=== PATIENT | male | born 1955 | race Caucasian/White ===

== ENCOUNTER → 2016-11-20 | Outpatient (CLI) | payer OTHER ==
[~2016-11-20] MED LIST: ASCA500 PO; ASPI81TA28 PO; ENOX60IN SQ; LISINOPRIL/HCTZ PO; MULT-506 PO; NITR1CAP32 PO; SIMV10TA2 PO; SIMV40TA2 PO; SULF800T23 PO; WARF2.5T8 PO; WARF5TAB90 PO; WARF7.5T PO; ZINC1CAP PO; simvastatin PO
--- NOTE | 2016-11-20 12:21 | DIAGNOSTIC IMAGING REPORT ---
ART DOP LOWER EXT BILAT CLINICAL HISTORY: NON HEALING WOUND COMPARISON STUDY: 12/07/2013 FINDINGS: Posterior tibial or dorsalis pedis arteries were noncompressible. Ankle-brachial indices are therefore not meaningful On the right, there is monophasic flow within the left common femoral artery. There is monophasic flow within the proximal superficial femoral artery. There is occlusion of the right mid superficial femoral artery. There is distal reconstitution. There is monophasic flow within the popliteal, anterior tibial, posterior tibial arteries. No flow is visualized in the right peroneal. On the left there is biphasic flow within the common femoral, superficial femoral, popliteal arteries. There is biphasic flow within the posterior tibial and anterior tibial. No flow is visualized within the peroneal artery. IMPRESSION: 1. Monophasic flow with the right common femoral artery. This could indicate a more proximal iliac stenosis 2. Occlusion of the right mid to distal superficial femoral artery. There is a suspected stent at this location which is occluded. This finding was present in November 2013 3. Suspected occlusion of the right peroneal artery 4. Suspected occlusion of the left peroneal artery Electronically signed by: Sonido Glaser M.D. 11/20/2016 12:20 PM Dictated Date/Time: 11/20/2016 12:16 PM
== END | disposition home or self-care (01) ==
LOC: C.ULTR 09:50
PROVIDERS: ATTEND Emergency Medicine
DX: S91.104A Unspecified open wound of right lesser toe(s) without damage to nail, initial encounter (principal); S91.102A Unspecified open wound of left great toe without damage to nail, initial encounter; X58.XXXA Exposure to other specified factors, initial encounter

== ENCOUNTER → 2016-11-26 | Outpatient (CLI) | payer OTHER ==
--- NOTE | 2016-11-26 09:04 | DIAGNOSTIC IMAGING REPORT ---
ULTRASOUND OF THE ABDOMINAL AORTA CLINICAL HISTORY: 60-year-old male with history of peripheral arterial disease. TECHNIQUE: Real-time grayscale and color and spectral Doppler ultrasound imaging of the abdominal aorta and iliac arteries was performed. COMPARISON: FINDINGS: Proximal aorta: Patent. Transverse dimension 1.8 x 1.8 cm. Peak systolic velocity 57 cm/s. Normal waveforms. Mid aorta: Patent. Transverse dimension 1.4 x 1.4 cm. Peak systolic velocity 45 cm/s. Normal waveforms. Distal aorta: Patent. Transverse dimension 1.3 x 1.6 cm. Peak systolic velocity 47 cm/s. Normal waveforms. Right iliac artery: Patent. Transverse dimension 0.8 x 0.8 cm. Peak systolic velocity 69 cm/s. Normal waveforms. Left iliac artery: Patent. Transverse dimension 0.8 x 0.8 cm. Peak systolic velocity 65 cm/s. Normal waveforms. IMPRESSION: 1. No evidence of abdominal aortic aneurysm or hemodynamically significant atherosclerotic plaque. Electronically signed by: Colton Reza M.D. 11/26/2016 9:03 AM Dictated Date/Time: 11/26/2016 8:58 AM
== END | disposition home or self-care (01) ==
LOC: C.ULTR 08:01
PROVIDERS: ATTEND Physician Assistant
DX: I70.90 Unspecified atherosclerosis (principal)

== ENCOUNTER → 2016-12-02 | Outpatient (CLI) | payer OTHER ==
[2016-12-02 12:54] LABS: BLOOD UREA NITROGEN 16 mg/dl (7-18); CREATININE 0.85 mg/dl (0.60-1.40)
== END | disposition home or self-care (01) ==
LOC: C.LAB 11:00
PROVIDERS: ATTEND Emergency Medicine
DX: S91.001A Unspecified open wound, right ankle, initial encounter (principal); X58.XXXA Exposure to other specified factors, initial encounter

== ENCOUNTER → 2016-12-05 | Outpatient (CLI) | payer OTHER ==
[~2016-12-05] MED LIST changes: +GADAVIST IV PRN
--- NOTE | 2016-12-05 12:25 | DIAGNOSTIC IMAGING REPORT ---
LOWER EXTREMITY JOINT COM CLINICAL HISTORY: 60 years-old Male presenting with R ANKLE NON HEALING WOUND along the lateral aspects, infection for 4 weeks, currently on antibiotics. TECHNIQUE: Multisequence, multiplanar MR imaging of the right ankle was performed before and after the administration of intravenous contrast. IV contrast: 6.6 mL of Gadavist. COMPARISON: None. FINDINGS: Examination limited by absence of true coronal imaging. Localizer images: Unremarkable. Diffuse subcutaneous edema and skin thickening along the dorsum of the ankle. Minimal bony edema noted at the posterior aspect of the distal fibula with associated mild T1 hypointensity. This is immediately deep to an apparent ulceration. No other sites of bony edema. Foci of susceptibility within the distal tibia and talar dome may relate to prior surgical intervention. Peroneal tendons intact. Anterior tendons including the tibialis anterior, extensor hallucis longus and extensor digitorum longus intact. Posterior tendons including the tibialis posterior, flexor digitorum longus, and flexor hallucis longus intact. Deltoid ligament grossly intact. Anterior and posterior talofibular ligaments intact.. Ankle mortise intact. No significant degenerative changes. Normal signal intensity within the sinus tarsi. No apparent thickening of the plantar fascia, although mild edema noted deep to the plantar fascia within superficial flexor musculature. IMPRESSION: 1. Bone marrow signal intensity changes within the distal posterior fibula and immediately deep to site of ulceration. This is concerning for developing osteomyelitis. 2. Extensive subcutaneous edema and skin thickening along the dorsum of the ankle concerning for cellulitis. Electronically signed by: Colton Reza M.D. 12/05/2016 12:24 PM Dictated Date/Time: 12/05/2016 12:14 PM
== END | disposition home or self-care (01) ==
LOC: C.MRI 09:30
PROVIDERS: ATTEND Emergency Medicine
DX: S91.001A Unspecified open wound, right ankle, initial encounter (principal); X58.XXXA Exposure to other specified factors, initial encounter; R60.0 Localized edema

== ENCOUNTER 2016-12-23 12:36 | Inpatient (IN) | payer OTHER ==
--- NOTE | 2016-12-15 16:06 | PAT Medication Instructions ---
Service Date Dec 15, 2016. Current Home Medication List Ascorbic Acid (Vitamin C), 500 MG PO QAM Aspirin (Aspirin Ec), 81 MG PO QAM Multivitamin (Multivitamin), 1 TAB PO QAM Nitrofurantoin Macrocrystals (Macrodantin), 100 MG PO QAM Simvastatin (Zocor), 40 MG PO QPM Sulfa/Trimethoprim (Bactrim Ds 800MG/160MG), 1 TAB PO BID Warfarin Sod (Jantoven), 2.5 MG PO 3XWEEK Warfarin Sodium (Coumadin), 5 MG PO UD Zinc Sulfate (Zinc Sulfate), 220 MG PO QAM [Lisinopril/Hctz], 10-12.5 MG PO QAM Medication Instructions For Your Scheduled Surgery - Check with surgeon/coumadin for instructions: Warfarin Sod (Jantoven), 2.5 MG PO 3XWEEK Warfarin Sodium (Coumadin), 5 MG PO UD Aspirin (Aspirin Ec), 81 MG PO QAM - Hold the following medications the morning of surgery: [Lisinopril/Hctz], 10-12.5 MG PO QAM Zinc Sulfate (Zinc Sulfate), 220 MG PO QAM Multivitamin (Multivitamin), 1 TAB PO QAM Ascorbic Acid (Vitamin C), 500 MG PO QAM - Take the following medications the morning of surgery with a sip of water: Nitrofurantoin Macrocrystals (Macrodantin), 100 MG PO QAM Sulfa/Trimethoprim (Bactrim Ds 800MG/160MG), 1 TAB PO BID - Take the following medications as scheduled the night before surgery: Simvastatin (Zocor), 40 MG PO QPM Sulfa/Trimethoprim (Bactrim Ds 800MG/160MG), 1 TAB PO BID If you have any questions please call us at [phone] or [phone] or [phone]
--- NOTE | 2016-12-15 16:28 | DIAGNOSTIC IMAGING REPORT ---
CHEST PREADMISSION(PA/LAT) CLINICAL HISTORY: PAT preoperative evaluation COMPARISON STUDY: 01/11/2014 FINDINGS: Lungs are clear. No evidence for cardiac enlargement. Stable stabilization procedure of the low thoracolumbar region. IMPRESSION: Chronic change. No acute process. The above report was generated using voice recognition software. It may contain grammatical, syntax or spelling errors. Electronically signed by: Wai Staples M.D. 12/15/2016 4:26 PM Dictated Date/Time: 12/15/2016 4:26 PM
[2016-12-15 16:51] LABS: BASO % 0.3 %; BASO ABS # 0.02 K/uL (0-0.2); COMPLETE YES; EOS % 1.5 %; HEMATOCRIT 45.5 % (42-52); IG% 0.3 %; LYMPH % 21.5 %; LYMPH ABS # 1.47 K/uL (1.2-3.4); MEAN CELL VOLUME 92.9 fL (80-100); MEAN CORPUSCULAR HGB CONC 34.5 g/dl (32-36); MEAN PLATELET VOLUME 9.4 fL (7.4-10.4); MONO % 10.4 %; PLATELET COUNT 269 K/uL (130-400); WHITE BLOOD COUNT 6.83 K/uL (4.8-10.8)
[2016-12-15 16:58] LABS: BUN/CREATININE RATIO 11.2 (10-20); CALCIUM 9.5 mg/dl (8.5-10.1); CREATININE 0.78 mg/dl (0.60-1.40); POTASSIUM 4.8 mmol/L (3.5-5.1)
[2016-12-15 17:07] LABS: INR 3.2 (0.9-1.1); PARTIAL THROMBOPLASTIN RATIO 1.8; PROTHROMBIN TIME (PATIENT) 35.7 SECONDS (9.0-12.0)
[~2016-12-23] VITALS: Ht 182.9 cm; Wt 67.3 kg
--- NOTE | 2016-12-23 06:15 | History and Physical ---
History & Physical Date Dec 23, 2016. Chief Complaint Non healing ulcer right ankle with probable osteo History of Present Illness The patient is a 61 year old male paraplegic gentleman who has a nonhealing ulceration of the lateral aspect of his right ankle area. The patient states that it has been there for a few months and that he has seen at [facility] for wound care on a regular basis since it developed. He states he has learned from prior experiences not to allow things to get too foregone. He has been consistent with his wound care and does have a history of significant peripheral arterial disease. He had previously undergone a right second toe amputation back in 2013 due to a nonhealing ulceration at that time as well. He presents now after undergoing further ultrasound evaluation of his aortoiliac arteries to evaluate for possible inflow disease, which was suggested on a recent leg arterial ultrasound. He denies any complaints at this time as he has no sensation in his lower extremities. The ultrasound performed in our office demonstrates no abdominal aortic aneurysm with multiphasic flow noted throughout his abdominal aortic and bilateral common iliac, external iliac, and common femoral arteries without any evidence of significant stenosis. Previous leg arterial ultrasound performed demonstrated occluded SFA stents throughout most of his right thigh. The ulcer continued to worsen. Due to his physical state we recommended a BKA Allergies Coded Allergies: No Known Allergies (Unverified , 12/15/16) Home Medications Scheduled Ascorbic Acid (Vitamin C), 500 MG PO QAM Aspirin (Aspirin Ec), 81 MG PO QAM Multivitamin (Multivitamin), 1 TAB PO QAM Nitrofurantoin Macrocrystals (Macrodantin), 100 MG PO QAM Simvastatin (Zocor), 40 MG PO QPM Sulfa/Trimethoprim (Bactrim Ds 800MG/160MG), 1 TAB PO BID Warfarin Sod (Jantoven), 2.5 MG PO 3XWEEK Warfarin Sodium (Coumadin), 5 MG PO UD Zinc Sulfate (Zinc Sulfate), 220 MG PO QAM [Lisinopril/Hctz], 10-12.5 MG PO QAM Problem List Medical Problems: (1) Osteomyelitis of right foot Surgical / Medical History Hx Cardiac Surgery: No Hx Abdominal Surgery: No Hx Cancer Surgery: No Hx Thoracic Surgery: No Hx Urinary Tract Surgery: No HX Other Surgery: Yes (SEE TEXT) Past Medical/Surgical History: Hypertension Social History Smoking Status: Former Smoker Hx Tobacco Use In Past Year?: No (SMOKED 1 PPD X MANY YRS-QUIT SMOKING 17 YRS AGO) Hx Alcohol Use - Type & Amnt: Yes (SOCIAL USE ON OCC) Hx Substance Use -Type & Amnt: No Review of Systems Constitutional: No chills, No diaphoresis, No fever, No malaise, No weakness, No weight gain, No weight loss, No sweats, No fatigue, No problem reported ENMT: No dental pain, No loss of hearing, No epistaxis, No ear discharge, No ear pain, No gum swelling, No mouth pain, No mouth swelling, No nasal congestion , No nasal pain, No rhinorrhea, No stridor, No tinnitus, No sore throat, No throat swelling, No problem reported Respiratory: No cough, No cyanosis, No ECHEVARRIA, No hemoptysis, No orthopnea, No PND , No short of breath, No sputum production, No stridor, No wheezing, No dyspnea , No problem reported Cardiovascular: No chest pain, No chest tightness, No chest pressure, No palpitations, No syncope, No diaphoresis, No edema, No intermittent claudication , No orthopnea, No cyanosis, No mumur, No lightheadedness, No paroxysmal nocturnal dyspnea, No problem reported Gastrointestinal: No abdominal pain, No constipation, No diarrhea, No nausea, No vomiting, No anorexia, No appetite changes, No belching, No flatulence, No food intolerance, No hematemesis, No hemorrhoids, No hematochezia, No stool changes, No heartburn, No indigestion, No dysphagia, No rectal bleeding, No problem reported Musculoskeletal: + muscle weakness, No back pain, No gout, No joint pain, No joint swelling, No muscle pain, No muscle stiffness, No neck pain, No problem reported Neurologic: + problem reported (paraplegic) Psychiatric: No anxiety, No alcohol abuse, No auditory hallucinations, No depression, No drug abuse, No homicidal ideation, No mood changes, No suicidal ideation, No visual hallucinations, No problem reported Physical Exam Constitutional: General Apperance: heathly-appearing, well-nourished, well-developed Level of Distress: NAD Ambulation: in wheelchair Psychiatric: Mental Status: active & alert, normal mood, normal affect Orientation: oriented except where noted, to time, to place, to person Memory: recent memory normal, remote memory normal Neck: supple Lungs: Auscultation: breath sounds normal Cardiovascular: Heart Auscultation: RRR Peripheral Pulses: Radial Pulse: normal on the left, normal on the right Femoral Pulse: normal on the left, normal on the right Abdomen: Inspection & Palpation: soft Musculoskeletal: pertinent finding (paraplegic) Extremities: Upper Right: no cyanosis, no edema, no varicosities, no palpable cord, no clubbing, no ulcers, no mottling Upper Left: no cyanosis, no edema, no varicosities, no palpable cord, no clubbing, no ulcers, no mottling Lower Right: pertinent finding (non healing ankle ulcer) Neurologic: Cranial Nerves: grossly intact Assessment and Plan Imp: Non healing right ankle wound Plan: Patient for a right BKA. I have discussed the risks options and benefits of the procedure with the patient. The patient understands the risks options and benefits and agrees to the procedure.
[~2016-12-23 12:36] MED LIST changes: +CEFAZOLIN 1000MG/55 ML D5W IV SCH; -ENOX60IN SQ; -GADAVIST IV PRN; +LACTATED RINGER'S 1000ML 1,000 ML IV SCH; -SIMV10TA2 PO; -WARF7.5T PO; -simvastatin PO
[2016-12-23] MEDS ORDERED: simvastatin PO (12:56)
[2016-12-23 13:13] VITALS: BP 104/64; PULSE 74; TEMP 36.9; Ht 182.9 cm; Wt 67.3 kg
[2016-12-23 13:39] LABS: INR 1.8 (0.9-1.1); PARTIAL THROMBOPLASTIN RATIO 1.4; PROTHROMBIN TIME (PATIENT) 19.4 SECONDS (9.0-12.0)
[2016-12-23] MEDS ORDERED: FENTANYL CITRATE INJ 50 MCG/1 ML 2 ML VIAL ONE (17:09)
[2016-12-23] MEDS ORDERED: ATROPINE SULFATE 0.1 MG/ML 5ML SYR IV PRN (17:45)
[2016-12-23] MEDS ORDERED: HYDROmorphone INJ 1 MG/ML SYR IV PRN (17:45)
[2016-12-23] MEDS ORDERED: PROMETHAZINE HCL INJ 12.5 MG in SODIUM CHLORIDE 0.9% 50ML 50 ML IV PRN (17:45)
[2016-12-23] MEDS ORDERED: ONDANSETRON INJ 2 MG/ML 2 ML VIAL IV PRN (17:45)
[2016-12-23] MEDS ORDERED: FENTANYL CITRATE INJ 50 MCG/1 ML 2 ML VIAL IV PRN (17:45)
[2016-12-23] MEDS ORDERED: EpHEDrine SULFATE INJ 50 MG/ML AMP IV PRN (17:45)
[2016-12-23] MEDS ORDERED: ACETAMINOPHEN 1000 MG/100 ML IV IV ONE (17:45)
[2016-12-23] MEDS ORDERED: ONDANSETRON INJ 2 MG/ML 2 ML VIAL ONE (18:24)
[2016-12-23] MEDS ORDERED: EpHEDrine SULFATE 50MG/5ML SYR ONE (18:24)
[2016-12-23] MEDS ORDERED: DEXAMETHASONE SOD INJ 4 MG/ML VIAL ONE (18:24)
[2016-12-23] MEDS ORDERED: LIDOCAINE HCL 2% 2 ML VIAL (20MG/ML) ONE (18:24)
[2016-12-23] MEDS ORDERED: PROPOFOL IV EMULSION 10 MG/ML 20 ML VIAL IV ONE (18:24)
--- NOTE | 2016-12-23 18:25 | History & Physical Bridge Note ---
H&P Re-Evaluation Bridge Note: I have examined the patient, reviewed the History & Physical and in the interval since the performance of the History & Physical I have noted the following changes of clinical significance: No changes noted
[2016-12-23] MEDS ORDERED: D5W AND 1/2NSS 1,000 ML IV SCH (19:14)
--- NOTE | 2016-12-23 19:14 | [facility] Post Operative Brief Note ---
Immediate Operative Summary Operative Date Dec 23, 2016. Pre-Operative Diagnosis Non healing ulcer right ankle with probable osteomyelitis Post-Operative Diagnosis same Procedure(s) Performed Below the knee amputation, right Surgeon DR Navarro Instructional Design Technologist Surgeon(s) Timothy Valentine Fellow with Dr Navarro Estimated Blood Loss 300ml Findings good bleeding Specimens a, right below the knee amputation Anesthesia Gen Complication(s) None Disposition Recovery Room / PACU
[2016-12-23] MEDS ORDERED: ACETAMINOPHEN 325 MG TAB PO PRN (19:15)
[2016-12-23] MEDS ORDERED: MoRPHine SULFATE 4 MG/ML 1 ML CARP\\VIAL IV PRN (19:15)
[2016-12-23] MEDS ORDERED: OXYCODONE/ACETAMINOPHEN 5-325 TAB PO PRN (19:15)
--- NOTE | 2016-12-23 19:41 | [facility] Operative Report ---
Operative Report Operative Date Dec 23, 2016. Pre-Operative Diagnosis Non healing ulcer right ankle with probable osteomyelitis Post-Operative Diagnosis same Procedure(s) Performed Below the knee amputation, right Surgeon DR Navarro Cullet Crusher Surgeon(s) Timothy Valentine Fellow with Dr Navarro Estimated Blood Loss 300ml Findings Patient had good bleeding during the operation. The muscle tissue appeared atrophied. Specimens a, right below the knee amputation Anesthesia Gen Complication(s) None Disposition Recovery Room / PACU Indications 61 year old male paraplegic gentleman who has a nonhealing ulceration of the lateral aspect of his right ankle area. The patient states that it has been there for a few months and that he has seen at [facility] for wound care on a regular basis since it developed. He states he has learned from prior experiences not to allow things to get too foregone. He has been consistent with his wound care and does have a history of significant peripheral arterial disease. He had previously undergone a right second toe amputation back in 2013 due to a nonhealing ulceration at that time as well. He presents now after undergoing further ultrasound evaluation of his aortoiliac arteries to evaluate for possible inflow disease, which was suggested on a recent leg arterial ultrasound. He denies any complaints at this time as he has no sensation in his lower extremities. The ultrasound performed in our office demonstrates no abdominal aortic aneurysm with multiphasic flow noted throughout his abdominal aortic and bilateral common iliac, external iliac, and common femoral arteries without any evidence of significant stenosis. Previous leg arterial ultrasound performed demonstrated occluded SFA stents throughout most of his right thigh. The ulcer continued to worsen. Due to his physical state we recommended a BKA Description of Procedure The patient was taken to the operating room and placed in the supine position. General anesthesia induced. Once adequate anesthesia had been achieved the right leg was prepped and draped in usual sterile fashion. A transverse incision made about the mid shaft of the tibia. A long posterior flap was created. It was taken to the subcutaneous tissues with electrocautery. Anterior compartment was divided. The anterior neurovascular bundle identified, clamped, and cut. Tibial bundle was identified, clamped, and cut. Periosteum of the tibia elevated proximally along with the fibula. An automated saw used to cut the fibula. The tibia was then cut with Gigli saw. It was beveled anteriorly. The fibula was cut about a cm and a half proximal to the tibial cut. The remaining posterior compartment was divided. The peroneal bundle identified, clamped, and cut. The leg was then passed off of the field. Each vascular bundle was stick tied with 2-0 silk suture. The nerves were each pulled at length, cut, and later retracted proximally. Good bleeding from the tissues and hemostasis obtained with electrocautery. Copious irrigation performed using antibiotic-impregnated solution. The gastroc soleus fascia brought up and attached to the anterior fascia and periosteum with 2-0 Vicryl in an interrupted fashion. The remaining fascia was closed with 2-0 Vicryl. Skin was then closed with skin shayan. Xeroform gauze, 4 x 4, and a padded soft dressing applied. The patient was then awakened, extubated, and taken to recovery in stable condition. There were no immediate operative complications, and he tolerated the procedure well. Dr. Navarro was present and scrubbed for the entirety of the case I, Dr. Navarro was present and scrubbed for the entire procedure. I attest to the content of the Intraoperative Record and any orders documented therein. Any exceptions are noted below.
--- NOTE | 2016-12-23 19:54 | Anesthesiology Progress Note ---
Anesthesia Post Op Note Date & Time Dec 23, 2016 at 19:53 Vital Signs Pain Intensity: 0 Vital Signs Past 12 Hours Date Time Temp Pulse Resp B/P (MAP) Pulse Ox O2 Delivery O2 Flow Rate FiO2 12/23/16 19:37 36.6 84 16 104/65 94 Nasal Cannula 2 12/23/16 19:31 85 20 12/23/16 19:31 83 20 96 12/23/16 19:30 101/64 12/23/16 19:28 90 19 95 12/23/16 19:28 90 19 12/23/16 19:25 110/74 12/23/16 19:23 87 17 12/23/16 19:23 87 17 99 12/23/16 19:20 109/73 12/23/16 19:18 96 15 115/66 97 12/23/16 19:18 36.2 96 16 115/66 97 Mask 10 12/23/16 19:18 97 15 12/23/16 13:13 36.9 74 22 104/64 Room Air 97 Notes Mental Status: alert / awake / arousable, participated in evaluation Pt Amnestic to Procedure: Yes Nausea / Vomiting: adequately controlled Pain: adequately controlled Airway Patency, RR, SpO2: stable & adequate BP & HR: stable & adequate Hydration State: stable & adequate Anesthetic Complications: no major complications apparent
[2016-12-23 20:10] VITALS: BP 110/72; PULSE 86; TEMP 36.7; O2SAT 97
[2016-12-23 20:44] VITALS: BP 110/72; PULSE 87; TEMP 36.7; O2SAT 94
[2016-12-23 21:10] VITALS: BP 108/69; PULSE 78; TEMP 36.4; O2SAT 94
[2016-12-23 21:10] LABS: BASO % 0.1 %; BASO ABS # 0.01 K/uL (0-0.2); COMPLETE YES; EOS % 0.1 %; HEMATOCRIT 37.3 % (42-52); IG% 0.3 %; LYMPH % 5.7 %; LYMPH ABS # 0.56 K/uL (1.2-3.4); MEAN CELL VOLUME 93.3 fL (80-100); MEAN CORPUSCULAR HEMOGLOBIN 32.5 pg (25-34); MEAN CORPUSCULAR HGB CONC 34.9 g/dl (32-36); MEAN PLATELET VOLUME 9.2 fL (7.4-10.4); MONO % 0.9 %; NEUT % 92.9 %; PLATELET COUNT 228 K/uL (130-400); WHITE BLOOD COUNT 9.74 K/uL (4.8-10.8)
[2016-12-23] MEDS: SIMVASTATIN 40 MG TAB PO SCH (21:35)
[2016-12-23] MEDS: CEFAZOLIN IV 1,000 MG in DEXTROSE 5% 50ML 50 ML IV SCH (21:36)
[2016-12-23 22:10] VITALS: BP 110/67; PULSE 84; TEMP 36.5; O2SAT 95
[2016-12-23 23:10] VITALS: BP 108/70; PULSE 84; TEMP 36.6; O2SAT 93
[2016-12-24 04:10] VITALS: BP 107/64; PULSE 74; TEMP 36.5; O2SAT 95
[2016-12-24] MEDS: CEFAZOLIN IV 1,000 MG in DEXTROSE 5% 50ML 50 ML IV SCH (05:41)
[2016-12-24 07:54] VITALS: BP 110/58; PULSE 62; TEMP 36.5; O2SAT 96
[2016-12-24] MEDS: ENOXAPARIN 30 MG/0.3 ML SYR SQ SCH ×2 (08:12→20:05)
[2016-12-24 08:16] LABS: BASO % 0.1 %; BASO ABS # 0.01 K/uL (0-0.2); COMPLETE YES; HEMATOCRIT 32.9 % (42-52); IG% 0.2 %; LYMPH % 9.6 %; LYMPH ABS # 0.84 K/uL (1.2-3.4); MEAN CELL VOLUME 91.6 fL (80-100); MEAN CORPUSCULAR HEMOGLOBIN 31.8 pg (25-34); MEAN CORPUSCULAR HGB CONC 34.7 g/dl (32-36); MEAN PLATELET VOLUME 9.3 fL (7.4-10.4); NEUT % 82.1 %; PLATELET COUNT 249 K/uL (130-400); RED BLOOD COUNT 3.59 M/uL (4.7-6.1); WHITE BLOOD COUNT 8.75 K/uL (4.8-10.8)
[2016-12-24 08:24] LABS: INR 1.5 (0.9-1.1); PROTHROMBIN TIME (PATIENT) 16.3 SECONDS (9.0-12.0)
[2016-12-24 08:42] LABS: BUN/CREATININE RATIO 9.2 (10-20); CALCIUM 8.4 mg/dl (8.5-10.1); CREATININE 0.65 mg/dl (0.60-1.40); POTASSIUM 3.9 mmol/L (3.5-5.1)
[2016-12-24 08:49] VITALS: O2SAT 96
[2016-12-24] MEDS ORDERED: SIMVASTATIN 40 MG PO SCH (09:00)
[2016-12-24] MEDS: ASPIRIN 81 MG ECTAB PO SCH (09:08)
[2016-12-24] MEDS: NITROFURANTOIN MACROCRYSTALS 50 MG CAP PO SCH (09:09)
[2016-12-24] MEDS: ZINC SULFATE 220 MG CAP PO SCH (09:09)
[2016-12-24] MEDS: LISINOPRIL/HCTZ 10/12.5MG TAB PO SCH (09:10)
[2016-12-24] MEDS: MULTIVITAMIN TAB PO SCH (09:10)
[2016-12-24] MEDS: ASCORBIC ACID 500 MG TAB PO SCH (09:10)
--- NOTE | 2016-12-24 09:27 | Anesthesiology Progress Note ---
Anesthesia Post Op Note Date & Time Dec 24, 2016 at 09:27 Vital Signs Pain Intensity: 0.0 Vital Signs Past 12 Hours Date Time Temp Pulse Resp B/P (MAP) Pulse Ox O2 Delivery O2 Flow Rate FiO2 12/24/16 08:49 96 Nasal Cannula 2.0 12/24/16 07:54 36.5 62 16 110/58 (75) 96 Nasal Cannula 2.0 12/24/16 04:10 36.5 74 16 107/64 (78) 95 Room Air 12/23/16 23:40 Nasal Cannula 2.0 12/23/16 23:10 36.6 84 16 108/70 (83) 93 Nasal Cannula 2.0 12/23/16 22:10 36.5 84 15 110/67 (81) 95 Nasal Cannula 2.0 Notes Mental Status: alert / awake / arousable, participated in evaluation Pt Amnestic to Procedure: Yes Nausea / Vomiting: adequately controlled Pain: adequately controlled Airway Patency, RR, SpO2: stable & adequate BP & HR: stable & adequate Hydration State: stable & adequate Anesthetic Complications: no major complications apparent
--- NOTE | 2016-12-24 13:31 | Progress Note ---
Progress Note Date of Service: Dec 24, 2016. Subjective 61 yo m with multiple medical problems, POD #1 after R BKA, seen in f/u today. Pt denies pain as he is paraplegic. States feeling ok. Denies other complaints. Objective Vital Signs Vital Signs Past 12 Hours Date Time Temp Pulse Resp B/P (MAP) Pulse Ox O2 Delivery O2 Flow Rate FiO2 12/24/16 08:49 96 Nasal Cannula 2.0 12/24/16 08:15 Room Air 12/24/16 07:54 36.5 62 16 110/58 (75) 96 Nasal Cannula 2.0 12/24/16 04:10 36.5 74 16 107/64 (78) 95 Room Air Exam CONST: A&O x4, NAD, chronically ill appearing male CHEST: RRR lungs decreased, but ctab ABD: soft, nontender, + bs x 4 quad EXT; RLE dressing in place, not saturated. Laboratory and Microbiology Results Past 24 Hours Test 12/23/16 20:56 12/24/16 07:32 Range/Units White Blood Count 9.74 8.75 4.8-10.8 K/uL Red Blood Count 4.00 3.59 4.7-6.1 M/uL Hemoglobin 13.0 11.4 14.0-18.0 g/dL Hematocrit 37.3 32.9 42-52 % Mean Corpuscular Volume 93.3 91.6 80-100 fL Mean Corpuscular Hemoglobin 32.5 31.8 25-34 pg Mean Corpuscular Hemoglobin Concent 34.9 34.7 32-36 g/dl Platelet Count 228 249 130-400 K/uL Mean Platelet Volume 9.2 9.3 7.4-10.4 fL Neutrophils (%) (Auto) 92.9 82.1 % Lymphocytes (%) (Auto) 5.7 9.6 % Monocytes (%) (Auto) 0.9 8.0 % Eosinophils (%) (Auto) 0.1 0.0 % Basophils (%) (Auto) 0.1 0.1 % Neutrophils # (Auto) 9.04 7.18 1.4-6.5 K/uL Lymphocytes # (Auto) 0.56 0.84 1.2-3.4 K/uL Monocytes # (Auto) 0.09 0.70 0.11-0.59 K/uL Eosinophils # (Auto) 0.01 0.00 0-0.5 K/uL Basophils # (Auto) 0.01 0.01 0-0.2 K/uL RDW Standard Deviation 49.3 48.3 36.4-46.3 fL RDW Coefficient of Variation 14.4 14.3 11.5-14.5 % Immature Granulocyte % (Auto) 0.3 0.2 % Immature Granulocyte # (Auto) 0.03 0.02 0.00-0.02 K/uL Prothrombin Time 16.3 9.0-12.0 SECONDS Prothromb Time International Ratio 1.5 0.9-1.1 Sodium Level 132 136-145 mmol/L Potassium Level 3.9 3.5-5.1 mmol/L Chloride Level 100 98-107 mmol/L Carbon Dioxide Level 28 21-32 mmol/L Anion Gap 4.0 3-11 mmol/L Blood Urea Nitrogen 6 7-18 mg/dl Creatinine 0.65 0.60-1.40 mg/dl Est Creatinine Clear Calc Drug Dose 112.1 ml/min Estimated GFR () 120.8 Estimated GFR (Non- 104.3 BUN/Creatinine Ratio 9.2 10-20 Random Glucose 138 70-99 mg/dl Calcium Level 8.4 8.5-10.1 mg/dl ASSESSMENT and PLAN: s/p RLE BKA RLE osteomyelitis and PAD Pt doing well post op. Continue to monitor. Will remove dressing tomorrow.
[2016-12-24 15:09] VITALS: BP 86/51; PULSE 74; TEMP 37; O2SAT 96
[2016-12-24 15:50] VITALS: BP 115/67; PULSE 87
[2016-12-24] MEDS ORDERED: WARFARIN SOD 2.5 MG TAB PO SCH (16:00)
[2016-12-24] MEDS: SIMVASTATIN 40 MG TAB PO SCH (20:05)
[2016-12-24 23:16] VITALS: BP 91/55; PULSE 72; TEMP 37; O2SAT 93
[2016-12-25 07:03] LABS: INR 1.3 (0.9-1.1); PROTHROMBIN TIME (PATIENT) 13.5 SECONDS (9.0-12.0)
[2016-12-25] MEDS: ENOXAPARIN 30 MG/0.3 ML SYR SQ SCH ×2 (07:36→20:13)
[2016-12-25 07:45] VITALS: BP 98/60; PULSE 70; TEMP 36.8; O2SAT 95
[2016-12-25] MEDS: LISINOPRIL/HCTZ 10/12.5MG TAB PO SCH (08:33)
[2016-12-25] MEDS: NITROFURANTOIN MACROCRYSTALS 50 MG CAP PO SCH (08:33)
[2016-12-25] MEDS: ZINC SULFATE 220 MG CAP PO SCH (08:33)
[2016-12-25] MEDS: MULTIVITAMIN TAB PO SCH (08:33)
[2016-12-25] MEDS: ASCORBIC ACID 500 MG TAB PO SCH (08:33)
[2016-12-25] MEDS: ASPIRIN 81 MG ECTAB PO SCH (08:33)
--- NOTE | 2016-12-25 12:56 | Clinical Documentation Query ---
CLINICAL DOCUMENTATION QUERY Dr. PARRA, In your clinical opinion is this patient being managed for: ( ) Acute blood loss anemia ( ) Other explanation of clinical findings (Please Explain) ( ) Unable to determine (Please Define) ( ) Need to Discuss ( ) Not Agree The medical record reflects the following clinical findings, treatment, and risk factors. Clinical Indicators: 61 yo male presenting with PAD, osteomyelitis and RLE ulcer, requiring a R BKA. Baseline Hgb 15.7, Hct 45.5 dropped to Hgb 11.4, Hct 32.9. EBL 300. Slightly hypotensive 98/60. Treatment: monitor CBC's Risk Factors: surgery with blood loss Please clarify and document your clinical opinion in the progress notes and discharge summary. Terms such as "probable", "suspected", "likely", "questionable", "possible", or "still to be ruled out" are acceptable. IF IN AGREEMENT, YOU MUST DOCUMENT ABOVE DIAGNOSTIC STATEMENT IN DAILY PROGRESS NOTES AND DISCHARGE SUMMARY. This document is not part of the patient's record. Thank You, Mary Radford, RAMONA [phone]
[2016-12-25 15:09] VITALS: BP 96/60; PULSE 75; TEMP 37.1; O2SAT 95
--- NOTE | 2016-12-25 15:30 | Progress Note ---
Progress Note Date of Service: Dec 25, 2016. Subjective No complaints Objective Vital Signs Vital Signs Past 12 Hours Date Time Temp Pulse Resp B/P (MAP) Pulse Ox O2 Delivery O2 Flow Rate FiO2 12/25/16 15:09 37.1 75 18 96/60 (72) 95 Room Air 12/25/16 08:00 Room Air 12/25/16 07:45 95 Room Air 12/25/16 07:45 36.8 70 18 98/60 (73) 95 Room Air Exam VSS Afebrile Dressing intact No further bleeding Intake & Output 8-Hour Column 12/25/16 12/26/16 12/26/16 16:00 00:00 08:00 Intake Total 1010 ml Balance 1010 ml 24-Hour Column 12/26/16 08:00 Intake Total 1010 ml Balance 1010 ml Laboratory and Microbiology Results Past 24 Hours Test 12/25/16 06:21 Range/Units Prothrombin Time 13.5 9.0-12.0 SECONDS Prothromb Time International Ratio 1.3 0.9-1.1 Imp: Post BKA Plan: Will check wound tomorrow and d/c home
[2016-12-25] MEDS ORDERED: WARFARIN SOD 5 MG TAB PO SCH (16:00)
[2016-12-25] MEDS: SIMVASTATIN 40 MG TAB PO SCH (20:13)
[2016-12-25 23:03] VITALS: BP 96/61; PULSE 87; TEMP 36.8; O2SAT 93
[2016-12-26 07:19] LABS: INR 1.1 (0.9-1.1); PROTHROMBIN TIME (PATIENT) 11.8 SECONDS (9.0-12.0)
[2016-12-26 07:36] VITALS: BP 108/69; PULSE 69; TEMP 36.5; O2SAT 92
[2016-12-26] MEDS ORDERED: ENOX60IN SQ (07:55)
--- NOTE | 2016-12-26 07:57 | Discharge Instructions ---
Discharge Instructions Date of Service Dec 26, 2016. Admission Reason for Admission: Right Foot Osteomyelitis Discharge Discharge Diagnosis / Problem: post Right Leg Below the knee amputation, Right foot osteomyelitis Discharge Goals Goal(s): Therapeutic intervention Activity Recommendations Activity Limitations: resume your previous activity . Current Hospital Diet Patient's current hospital diet: AHA Diet (Heart Healthy) Discharge Diet Recommended Diet: AHA Diet (Heart Healthy) Procedures Procedures Performed: Below the knee amputation, right Pending Studies Studies pending at discharge: no Medical Emergencies . Who to Call and When: Medical Emergencies: If at any time you feel your situation is an emergency, please call 911 immediately. . Non-Emergent Contact Non-Emergency issues call your: Primary Care Provider . "Provider Documentation" section prepared by Rosalba Ruff. . VTE Core Measure Inpt VTE Proph given/why not?: Enoxaparin (Lovenox)SQ
[2016-12-26] MEDS: ASCORBIC ACID 500 MG TAB PO SCH (08:24)
[2016-12-26] MEDS: ASPIRIN 81 MG ECTAB PO SCH (08:24)
[2016-12-26] MEDS: NITROFURANTOIN MACROCRYSTALS 50 MG CAP PO SCH (08:24)
[2016-12-26] MEDS: MULTIVITAMIN TAB PO SCH (08:24)
[2016-12-26] MEDS: ENOXAPARIN 30 MG/0.3 ML SYR SQ SCH (08:24)
[2016-12-26] MEDS: LISINOPRIL/HCTZ 10/12.5MG TAB PO SCH (08:24)
[2016-12-26] MEDS: ZINC SULFATE 220 MG CAP PO SCH (08:25)
[2016-12-26 08:58] VITALS: BP 108/69; PULSE 69; TEMP 36.5; O2SAT 92
--- NOTE | 2016-12-26 09:40 | Progress Note ---
Progress Note Date of Service: Dec 26, 2016. Subjective 61 yo m with multiple medical problems including PAD and longstanding paraplegia d/t trauma, POD # 3 after RLE BKA d/t osteomyelitis, seen in f/u today. Pt denies any complaints. Objective Vital Signs Vital Signs Past 12 Hours Date Time Temp Pulse Resp B/P (MAP) Pulse Ox O2 Delivery O2 Flow Rate FiO2 12/26/16 08:58 36.5 69 16 92 Room Air 12/26/16 07:45 Room Air 12/26/16 07:36 36.5 69 16 108/69 (82) 92 Room Air 12/25/16 23:03 36.8 87 16 96/61 (73) 93 Room Air Exam CONST: A&O x4, NAD, mildly chronically ill appearing male CHEST; RRR lungs decreased, but ctab ABD; soft, nontender, +bs x 4 quad EXT; RLE BKA incision C/I with shayan. Minimal bloody drainage noted. Minimal edema. No ecchymosis or erythema. No tenderness d/t lack of sensation. Laboratory and Microbiology Results Past 24 Hours Test 12/26/16 06:18 Range/Units Prothrombin Time 11.8 9.0-12.0 SECONDS Prothromb Time International Ratio 1.1 0.9-1.1 ASSESSMENT and PLAN: s/p RLE BKA RLE osteomyelitis and severe PAD Pt doing well post op. D/C home today. Will see in office in 2 weeks for staple removal.
--- NOTE | 2016-12-26 13:45 | DISCHARGE SUMMARY ---
ADMISSION DIAGNOSES: 1. Right ankle nonhealing ulceration with osteomyelitis. 2. Severe peripheral arterial disease. DISCHARGE DIAGNOSES: 1. Status post right leg [id number] amputation. 2. Right ankle nonhealing ulceration with osteomyelitis. 3. Severe peripheral arterial disease. DISCHARGE CONDITION: Stable. CONSULTATIONS IN THE HOSPITAL: Included none. PROCEDURES IN THE HOSPITAL: Included right leg [id number] amputation, which was performed on 12/23/2016 and the patient had an EBL of 300 mL and had no significant complications. HISTORY OF PRESENT ILLNESS: Mr. Sheehan is a 61-year-old paraplegic gentleman who had a nonhealing ulceration on the lateral aspect of his right ankle. He had been following at [facility] for wound care periodically since the development. He has a history of having had right leg stents throughout his SFA which are chronically occluded. After ultrasound evaluation demonstrated good inflow to his right leg as well as an occluded SFA stents throughout his right SFA. He was recommended to consider undergoing a below the knee amputation due to lack of use of his right leg from his chronic paraplegia. The procedure, risks, benefits, alternatives were discussed with the patient who expressed understanding and agreement to proceed. HOSPITAL COURSE: Mr. Sheehan was admitted on 12/23/2016 after undergoing his right leg [id number] amputation. He did essentially well postoperatively. He did not require medication for pain control due to lack of sensation in his right leg. He remained stable with vital signs and labs. He is taking p.o. well and after a day or 2 of physical therapy was able to transfer himself without any problems. He was felt to be stable enough for discharge on postop day 3. PHYSICAL EXAMINATION: VITAL SIGNS: On day of discharge, his vital signs were as follows: Temperature of 36.5, pulse of 69, respiratory rate of 16, blood pressure 108/69 and pulse oximetry of 92% on room air. CONSTITUTIONAL: The patient is a mildly chronically ill-appearing, middle-aged male in no acute distress. He is not ambulatory due to his paraplegic status. HEAD: Normocephalic and atraumatic. EYES: EOMI. EARS, NOSE, MOUTH, THROAT EXAMINATION: No hearing loss, rhinorrhea or pharyngeal erythema. NECK: Supple, nontender with a midline trachea without masses or crepitus. LUNGS: Demonstrated no dyspnea. They were decreased somewhat throughout but clear bilaterally. CARDIOVASCULAR: Demonstrated nondisplaced apical impulse with a regular rate and rhythm without murmurs. ABDOMEN: Soft, nontender with normoactive bowel sounds in all 4 quadrants without guarding or rebound. There was no flank or CVA tenderness. EXTREMITIES: His bilateral upper extremities demonstrate no cyanosis, edema, clubbing, varicosities or ulcers. The patient's right leg [id number]-ulr-[id number] amputation surgical site is well approximated with shayan and healing appropriately. There was minimal bloody drainage on the dressing and the area appeared only mildly edematous. The area was nontender due to it being insensate and demonstrated no significant ecchymosis or erythema. His left leg distal pulses were +1. The patient has no physical strength of either lower extremity. NEUROLOGIC: The patient has no focal deficits other than his bilateral lower extremity weakness and sensitivity due to paraplegia. DIET UPON DISCHARGE: Should be a low-cholesterol AHA diet. MEDICATIONS: Are reconciled on the chart and are as per his discharge instructions. Of note, patient is to continue taking Lovenox until his INR is therapeutic. He will be calling his PCP who manages his Coumadin to get that retested. FOLLOWUP: Should be with Dr. Navarro or his PA Rosalba Ruff in 2 weeks for reevaluation and removal of shayan. The patient was advised to call the office with any other questions or concerns.
== END 2016-12-26 09:41 | disposition home health service (06) | DRG 240 ==
LOC: C.ACU 12:36 → C.MSW 14:45 → ENRESERV 19:42
PROVIDERS: ADMIT Surgery Vascular Surgery; ATTEND Surgery Vascular Surgery
PROC: 0Y6H0Z2 Detachment at Right Lower Leg, Mid, Open Approach (ICD-10-PCS; principal; 2016-12-23 14:30)
DX: I73.9 Peripheral vascular disease, unspecified (principal); M86.9 Osteomyelitis, unspecified; L97.319 Non-pressure chronic ulcer of right ankle with unspecified severity; G82.20 Paraplegia, unspecified; Z88.2 Allergy status to sulfonamides; X58.XXXS Exposure to other specified factors, sequela

== ENCOUNTER 2022-04-18 10:39 | Inpatient (IN) ==
[2022-04-18 11:41] LABS: Basophils # (auto) 0.02 K/uL (0-0.2); Basophils % (auto) 0.2 %; Eosinophils # (auto) 0.05 K/uL (0-0.50); Eosinophils % (auto) 0.5 %; Hematocrit (blood only) 46.4 % (40.1-51.0); Hemoglobin 15.6 g/dl (14.0-18.0); Immature Granulocytes # (auto) 0.04 K/uL (0.00-0.02); Immature Granulocytes % (auto) 0.4 %; Lymphocytes # (auto) 1.18 K/uL (1.2-3.4); Lymphocytes % (auto) 12.1 %; Mean Corpuscular Hemoglobin 31.7 pg (25.0-34.0); Mean Corpuscular Hgb Conc 33.6 g/dL (32.0-36.0); Mean Corpuscular Volume 94.3 fL (80.0-100.0); Mean Platelet Volume 9.7 fL (9.4-12.4); Monocytes % (auto) 7.2 %; Neutrophils # (auto) 7.79 K/uL (1.4-6.5); Neutrophils % (auto) 79.6 %; Platelet Count 309 K/uL (130-400); RDW Coefficient of Variation 14.3 % (11.5-14.5); RDW Standard Deviation 49.2 fL (36.4-46.3); Red Blood Count 4.92 M/uL (4.63-6.08); White Blood Count 9.78 K/ul (4.8-10.8)
[2022-04-18 12:21] LABS: Alanine Aminotransferase 12 U/L (7-52); Albumin Level 3.9 gm/dl (3.4-5.0); Alkaline Phosphatase 98 U/L (34-104); Anion Gap 10 (3-11); Aspartate Aminotransferase 18 U/L (13-39); Bilirubin,Total 0.6 mg/dl (0.2-1.0); Blood Urea Nitrogen 20 mg/dl (6-23); Calcium 9.6 mg/dl (8.5-10.1); Carbon Dioxide 27 mmol/L (21-32); Chloride 100 mmol/L (98-107); Est GFR (African American) 108.8 ml/min; Est GFR (Non-African American) 93.9 ml/min; Globulin 4.1 gm/dl (2.5-4.0); Glucose 104 mg/dl (70-99(Fasting)); Sodium 137 mmol/L (136-145)
[2022-04-18] MEDS ORDERED: OPTIRAY 350 100ml IV ONE (14:30)
--- NOTE | 2022-04-18 14:59 | Emergency Department Note ---
Impression & Plan Open wound of perineum, Cellulitis of scrotum ED Provider Note HISTORY OF PRESENT ILLNESS: Patient is a 66-year-old male presenting with a wound to his right perineum. Patient reports that he has had a chronic wound in this area dating back to 2 months ago. He states that in the last month since following with wound clinic the wound had improved up until a week ago when he was getting out of bed and noticed some clear drainage on his bedsheet. He states that wound clinic called him today and said that they could fit him in, so he presented to wound clinic for evaluation and was referred to the emergency department for further care. Patient denies any fevers. He is unable to feel from the waist down secondary to paralysis. He denies any fevers at home. Denies any nausea or vomiting. ROS: Constitutional: No fever, chills, or weakness Skin: +perineal wound HENT: No headaches or congestion Eyes: No vision changes Cardio: No chest pain, palpitations or leg swelling Respiratory: No cough, wheezing or shortness of breath GI: No nausea, vomiting, diarrhea, constipation : No dysuria, polyuria MSK: No joint or back pain Neuro: No loss of sensation, confusion, focal deficits, numbness, tingling Psychiatric: No mood changes PHYSICAL EXAM: Constitutional: Patient appears in no acute distress. HENT: Head: Normocephalic and atraumatic. Eyes: EOMI, PERRL Mouth/Throat: Mucous membranes moist. Neck: Trachea midline. Neck supple. Cardiovascular: RRR, No murmurs, rubs or gallops. Intact distal pulses. Pulmonary/Chest: No respiratory distress. Breath sounds clear and equal bilaterally. No wheezes or rales. Abdominal: BS +. Abdomen soft, no tenderness, rebound or guarding. : Pressure ulcer to right medial upper thigh extending posteriorly into gluteal fold. Eschar apparent near rectum. Surrounding erythema. No palpable crepitus or fluctuance. Back: No midline spinal tenderness, no paraspinal tenderness, no CVA tenderness. Musculoskeletal: Right AKA. Skin: Warm and dry. No rash, erythema, pallor or cyanosis Psychiatric: Appropriate mood and affect for situation. Neurological: Alert and keenly responsive. CN II-XII grossly intact MDM: - Vitals signs showed hypertension. - Laboratory workup grossly unremarkable. - CT pelvis with IV contrast showed right perineal/inferior gluteal wound/ulceration. 2.8 cm pocket of fluid favors a draining wound. No obvious abscess or free gas. Adjacent cellulitis noted that extends to base of scrotum. - Blood cultures ordered. - IV zosyn ordered for antibiotic coverage. - Hospitalist consulted for admission. - Patient admitted to hospitalist service for further evaluation and management. 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 Surgical History H/O spinal fusion Hx of right BKA S/P flap graft Social History Smoking Status: Former smoker Hx Alcohol Use: Yes Alcohol type: beer Alcohol Intake Frequency: 4 or More x per/Week Preferred Language: Grenadian Communication Ability: Effective Visual Impairment: Limited Hearing Ability: Hard of Hearing Quality Assurance Clerk Required: No Beliefs That Will Affect Care: None Current Living Situation: Alone current occupational status: disabled Feels Safe at Home: Yes caffeine: Yes during the past year weight has: decreased > 10 lbs Physical Activity Frequency: Does not Exercise Gender Identity: Male Assistive Devices: Glasses, Prosthesis, Walker and Wheelchair Allergies Allergies Allergy/AdvReac Type Severity Reaction Status Date / Time No Known Allergies Allergy Verified 04/18/22 13:55 Home Meds Home Medications Medication Instructions Recorded Confirmed ascorbic acid (vitamin C) 500 mg 1,000 mg PO DAILY 09/18/21 04/18/22 capsule aspirin 81 mg tablet,delayed 81 mg PO DAILY 09/18/21 04/18/22 release lisinopril 10 1 tab PO DAILY 09/18/21 04/18/22 mg-hydrochlorothiazide 12.5 mg tablet multivitamin 1 tab PO DAILY 09/18/21 04/18/22 simvastatin 40 mg tablet 40 mg PO DAILY 09/18/21 04/18/22 warfarin 2.5 mg tablet 2.5 mg PO TUTH 09/18/21 04/18/22 warfarin 5 mg tablet 5 mg PO DAILY 09/18/21 04/18/22 nitrofurantoin macrocrystal 100 mg 100 mg PO DAILY 04/18/22 04/18/22 capsule zinc acetate 50 mg (zinc) capsule 50 mg PO DAILY 04/18/22 04/18/22 Results & Data (ED) Vital Signs Vital Signs - 24 hr 04/18/22 10:46 04/18/22 16:20 Temperature 36.6 C Temperature Source Temporal Artery Scan Pulse Rate 93 H Pulse Rate [Finger] 82 Pulse Rhythm [Finger] Regular Pulse Strength [Finger] Normal Respiratory Rate 20 18 Respiratory Effort / Characteristics Non-Labored Non-Labored Spontaneous Respiratory Depth Normal Normal Respiratory Pattern Regular Regular Blood Pressure 162/93 H Blood Pressure [Right Arm] 159/88 H Blood Pressure Mean 116 Blood Pressure Mean [Right Arm] 111 Blood Pressure Position Sitting Blood Pressure Position [Right Arm] Lying Pulse Oximetry 93 97 Oxygen Delivery Method Room Air Room Air Sepsis Recent Fever Within 48 Hours No Sepsis New/Unexplained Change in Mental Status No Sepsis Action Taken by Nursing No Action Required Laboratory Data Result diagrams: 04/18/22 11:20 04/18/22 11:20 Lab Results 04/18/22 04/18/22 Range/Units 11:20 11:20 WBC 9.78 (4.8-10.8) K/ul RBC 4.92 (4.63-6.08) M/uL Hgb 15.6 (14.0-18.0) g/dl Hct 46.4 (40.1-51.0) % MCV 94.3 (80.0-100.0) fL MCH 31.7 (25.0-34.0) pg MCHC 33.6 (32.0-36.0) g/dL RDW Std Deviation 49.2 H (36.4-46.3) fL RDW Coeff of Tobias 14.3 (11.5-14.5) % Plt Count 309 (130-400) K/uL MPV 9.7 (9.4-12.4) fL Immature Gran % (Auto) 0.4 % Neut % (Auto) 79.6 % Lymph % (Auto) 12.1 % Moody % (Auto) 7.2 % Eos % (Auto) 0.5 % Baso % (Auto) 0.2 % Neut # (Auto) 7.79 H (1.4-6.5) K/uL Lymph # (Auto) 1.18 L (1.2-3.4) K/uL Moody # (Auto) 0.70 (0.24-0.82) K/uL Eos # (Auto) 0.05 (0-0.50) K/uL Baso # (Auto) 0.02 (0-0.2) K/uL Immature Gran # (Auto) 0.04 H (0.00-0.02) K/uL Sodium 137 (136-145) mmol/L Potassium 4.0 (3.5-5.1) mmol/L Chloride 100 (98-107) mmol/L Carbon Dioxide 27 (21-32) mmol/L Anion Gap 10 (3-11) BUN 20 (6-23) mg/dl Creatinine 0.77 (0.6-1.4) mg/dl Est Cr Clr Drug Dosing Not Reportable Est GFR ( Amer) 108.8 ml/min Est GFR (Non-Af Amer) 93.9 ml/min BUN/Creatinine Ratio 26.0 H (10-20) Glucose 104 H (70-99(Fasting)) mg/dl Calcium 9.6 (8.5-10.1) mg/dl Total Bilirubin 0.6 (0.2-1.0) mg/dl AST 18 (13-39) U/L ALT 12 (7-52) U/L Alkaline Phosphatase 98 (34-104) U/L Total Protein 8.0 (6.0-8.3) gm/dl Albumin 3.9 (3.4-5.0) gm/dl Globulin 4.1 H (2.5-4.0) gm/dl Albumin/Globulin Ratio 1.0 (0.9-2) Administered Medications Discontinued Medications Piperacillin Sod/Tazobactam (Sod 3.375 gm/ Dextrose) 100 ml in 115 mls @ 230 m ls/hr IV NOW STA Stop: 04/18/22 16:37 Last Admin: 04/18/22 16:55 Dose: 230 mls/hr Documented By: [id number] Ioversol (Optiray 350 100ml) 85 ml IV ONCE ONE Stop: 04/18/22 14:31 Last Admin: 04/18/22 14:31 Dose: 85 ml Documented By: Devin Imaging Data Radiologist's Impression: Pelvis CT 04/18/22 13:25 CT OF THE PELVIS WITH IV CONTRAST CLINICAL HISTORY: Right perineal wound. COMPARISON STUDY: No previous studies for comparison. TECHNIQUE: Axial images of the pelvis were obtained following intravenous a dministration of 85 cc of Optiray 350. Sagittal and coronal reconstructions were viewed. Automated exposure control was utilized for the study. A dose lowering technique was utilized adhering to the principles of ALARA. FINDINGS: Diffuse muscular atrophy is noted. IVC filter is partially imaged. There are postoperative findings within the spine and right femur. Irregular bladder wall thickening is probably chronic. There is dilatation of the distal left ureter which may also be chronic. Mildly enlarged left external iliac and inguinal lymph nodes are likely reactive. Erosion of the coccyx and right inferior pubic ramus appears chronic. There is no evidence for acute osteomyelitis within the pelvis or hips. Degenerative changes of both hips are incidentally noted. Note is made of a right peroneal/inferior gluteal wound. There is a 2.8 cm pocket of fluid projecting over the skin. This favors a draining wound. No drainable rim-enhancing fluid collection is identified to suggest an abscess. There is adjacent infiltration consistent with cellulitis. There is no soft tissue gas to suggest necrotizing fasciitis by CT. A moderate amount of stool within the colon and rectum is present. Stool extending to the rectum and anus is noted. Postoperative findings within left iliac bone from bone harvesting are incidentally noted. IMPRESSION: 1. Right perineal/inferior gluteal wound/ulceration. 2.8 cm pocket of fluid projecting over the skin which favors a draining wound. No rim-enhancing fluid collection to suggest abscess. No soft tissue gas. Adjacent infiltration consistent with cellulitis which extends to the base of the scrotum. 2. Chronic erosion of the right inferior pubic ramus and coccyx. No evidence for acute osteomyelitis. 3. Irregular bladder wall thickening, likely chronic. ACT 112: Negative or not required by law. Electronically signed by: Noel Willett M.D. 04/18/2022 3:21 PM Discharge Plan Visit Data Chief Complaint: Infection, Wound Stated Complaint: SORE ON BUTT, REF BY WOUND CLINIC ED Provider: Erica Milan Discharge Problem: Open wound of perineum, Cellulitis of scrotum Patient Disposition: Admitted As Inpatient Forms Stand Alone Forms: My [facility] Prescriptions Prescriptions: No Action ascorbic acid (vitamin C) 500 mg capsule 1,000 mg PO DAILY aspirin 81 mg tablet,delayed release (DR/EC) 81 mg PO DAILY lisinopril-hydrochlorothiazide 10-12.5 mg tablet 1 tab PO DAILY multivitamin Tablet 1 tab PO DAILY simvastatin 40 mg tablet 40 mg PO DAILY warfarin 2.5 mg tablet 2.5 mg PO TUT Rx Instructions: Tuesdays/ warfarin 5 mg tablet 5 mg PO DAILY Rx Instructions: every day. Adds 2.5mg on Thu and for total of 7.5mg. zinc acetate 50 mg (zinc) Capsule 50 mg PO DAILY nitrofurantoin macrocrystal 100 mg capsule 100 mg PO DAILY Referrals Referrals: Shira Smith PA-C [Primary Care Provider] -
--- NOTE | 2022-04-18 15:22 | CT Scan Report ---
CT OF THE PELVIS WITH IV CONTRAST CLINICAL HISTORY: Right perineal wound. COMPARISON STUDY: No previous studies for comparison. TECHNIQUE: Axial images of the pelvis were obtained following intravenous administration of 85 cc of Optiray 350. Sagittal and coronal reconstructions were viewed. Automated exposure control was utilize d for the study. A dose lowering technique was utilized adhering to the principles of ALARA. FINDINGS: Diffuse muscular atrophy is noted. IVC filter is partially imaged. There are postoperative findings within the spine and right femur. Irregular bladder wall thickening is probably chronic. The re is dilatation of the distal left ureter which may also be chronic. Mildly enlarged left external i liac and inguinal lymph nodes are likely reactive. Erosion of the coccyx and right inferior pubic yoly us appears chronic. There is no evidence for acute osteomyelitis within the pelvis or hips. Degenerat marshal changes of both hips are incidentally noted. Note is made of a right peroneal/inferior gluteal wo und. There is a 2.8 cm pocket of fluid projecting over the skin. This favors a draining wound. No maria del carmen inable rim-enhancing fluid collection is identified to suggest an abscess. There is adjacent infiltra tion consistent with cellulitis. There is no soft tissue gas to suggest necrotizing fasciitis by CT. A moderate amount of stool within the colon and rectum is present. Stool extending to the rectum and anus is noted. Postoperative findings within left iliac bone from bone harvesting are incidentally no coty. IMPRESSION: 1. Right perineal/inferior gluteal wound/ulceration. 2.8 cm pocket of fluid projecting over the skin which favors a draining wound. No rim-enhancing fluid collection to suggest abscess. No soft tissue g as. Adjacent infiltration consistent with cellulitis which extends to the base of the scrotum. 2. Chronic erosion of the right inferior pubic ramus and coccyx. No evidence for acute osteomyelitis. 3. Irregular bladder wall thickening, likely chronic. ACT 112: Negative or not required by law. Electronically signed by: Noel Willett M.D. 04/18/2022 3:21 PM
[2022-04-18] MEDS ORDERED: PIPERACILLIN/TAZOBACTAM 3.375 GM in DEXTROSE 5% 100 ML/100 ML BAG IV STA (16:08)
[2022-04-18] MEDS ORDERED: VANCOMYCIN CONSULT ACTIVE PRN ×2 (18:06→20:12)
[2022-04-18] MEDS ORDERED: VANCOMYCIN HCL 1,500 MG in SODIUM CHLORIDE 0.9% 500 ML IV ONE (18:30)
--- NOTE | 2022-04-18 18:40 | History & Physical Report ---
Date of Service April 18, 2022 Assessment & Plan (1) Paraplegia: (2) Unstageable pressure ulcer of buttock: Plan: Admit to [facility] Patient presenting by referral to the wound care center for evaluation of large, unstageable pressure ulcer of the right buttock/gluteal fold Pelvis CT shows Right perineal/inferior gluteal wound/ulceration. 2.8 cm pocket of fluid projecting over the skin which favors a draining wound. No rim- enhancing fluid collection to suggest abscess. No soft tissue gas. Adjacent infiltration consistent with cellulitis which extends to the base of the scrotum. Does not appear septic S/p Zosyn in the ED, continue with and add vancomycin Follow blood and wound cultures General surgery consult for possible surgical debridement Wound care nurse consult (3) History of CVA (cerebrovascular accident): (4) PAD (peripheral artery disease): Plan: Anticoagulated on Coumadin, INR 3.1 Will hold Coumadin tonight due to possible surgical intervention tomorrow Continue statin (5) Neurogenic bladder: Plan: Patient self caths 4 times a day, will place [place] while admitted On chronic nitrofurantoin for UTI suppression DVT prophylaxis SCDs due to possible surgical intervention tomorrow History of Present Illness Chief Complaint: Buttock wound Primary Care Provider: Shira mSith PA-C 66-year-old male with PMH traumatic T12 burst fracture resulting in paraplegia, history of CVA and PAD anticoagulated on Coumadin, s/p right BKA, HTN, dyslipidemia, neurogenic bladder requiring self-catheterization, and other problems listed below who presents to the ED by referral of the wound care center for evaluation of a right buttock wound. Previous history of stage III pressure ulcer of the right buttock treated at the wound care center, discharged in 01/2022. Patient reports that about 4 days ago, when he got out of bed he noted that there was a wet spot on the sheet. Patient was seen at the wound care center today and was found to have an unstageable ulcer in the right gluteal fold nearing the perineum. Due to significant drainage and foul- smelling odor, patient was referred to the ED for further evaluation. No fevers or chills reported. Patient reports he otherwise has been feeling well recently. Denies chest pain or shortness of breath. No lightheadedness or dizziness. Denies abdominal pain, nausea, vomiting, diarrhea. Patient reports that he self caths 4 times per day. Does know urine has been slightly more cloudy. In the ED, patient is hemodynamically stable, does not appear septic. CT pelvis shows Right perineal/inferior gluteal wound/ulceration. 2.8 cm pocket of fluid projecting over the skin which favors a draining wound. No rim- enhancing fluid collection to suggest abscess. No soft tissue gas. Adjacent infiltration consistent with cellulitis which extends to the base of the scrotum. Patient was given IV Zosyn. Allergies Allergy/AdvReac Type Severity Reaction Status Date / Time No Known Allergies Allergy Verified 04/18/22 13:55 Home Medications Medication Instructions Recorded Confirmed Type ascorbic acid (vitamin C) 500 mg 1,000 mg PO DAILY 09/18/21 04/18/22 History capsule aspirin 81 mg tablet,delayed 81 mg PO DAILY 09/18/21 04/18/22 History release lisinopril 10 1 tab PO DAILY 09/18/21 04/18/22 History mg-hydrochlorothiazide 12.5 mg tablet multivitamin 1 tab PO DAILY 09/18/21 04/18/22 History warfarin 5 mg tablet 7.5 mg PO TUTH 09/18/21 04/18/22 History atorvastatin 40 mg tablet 40 mg PO DAILY 04/18/22 04/18/22 History calcium carbonate 600 mg-vitamin 1 tab PO BID 04/18/22 04/18/22 History D3 10 mcg (400 unit) tablet nitrofurantoin macrocrystal 100 mg 100 mg PO DAILY 04/18/22 04/18/22 History capsule warfarin 5 mg tablet 5 mg PO SUMOWEFRSA 04/18/22 04/18/22 History zinc acetate 50 mg (zinc) capsule 50 mg PO DAILY 04/18/22 04/18/22 History Past Med/Surg History Medical History Chronic UTI Hypercholesteremia Hypertension Neurogenic bladder Paraplegia Peripheral artery disease Self-catheterizes urinary bladder T12 vertebral fracture Trauma Pt states he fell 25 ft off of scaffolding 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 Surgical History H/O spinal fusion Hx of right BKA S/P flap graft Family History Father Cancer Social History Smoking Status: Former smoker Second Hand Exposure: No; Do You Dip or Chew Tobacco: No; Tobacco Cessation Education Requested by Patient: No Hx Alcohol Use: Yes Alcohol type: beer Alcohol Intake Frequency: 4 or More x per/Week Hx Substance Use: No Preferred Language: Georgian Communication Ability: Effective Visual Impairment: Limited Hearing Ability: Hard of Hearing Nurses' Registry Director Required: No Beliefs That Will Affect Care: None Current Living Situation: Alone current occupational status: disabled Other Information That Helps Us Care for You: No Feels Safe at Home: Yes Safety Concerns: Feels Safe At This Time caffeine: Yes during the past year weight has: decreased > 10 lbs Physical Activity Frequency: Does not Exercise Gender Identity: Male Assistive Devices: Glasses, Mechanical Lift and Scooter/Electric Scooter Review of Systems Review of Systems: ROS per HPI, all other systems reviewed and negative Physical Exam Constitutional: WD/WN, vitals as above Eyes: PERRL, conjunctivae normal, anicteric sclerae ENMT: external ear and nose normal, oropharynx normal Respiratory: normal respiratory effort, lungs clear to auscultation Cardiovascular: Rate/Rhythm: regular rate and regular rhythm Vessels: normal peripheral pulses Extremities: no edema Gastrointestinal (Abdomen): normal bowel sounds, soft, nontender, no hepatosplenomegaly Musculoskeletal: S/p right BKA, chronic paraplegia Skin: no rashes, warm and dry Large, unstageable ulcer/wound to the right gluteal fold, + foul-smelling Neurologic: PERRL, EOMI, accommodation nl, no face palsy, no dysarthria Psychiatric: A+Ox3, euthymic affect Results & Data Results & Data ([facility]) Vital Signs (Past 12 Hours) Vital Signs Temp Pulse Pulse Resp BP BP Pulse Ox 04/18/22 16:20 82 18 159/88 H 97 04/18/22 10:46 36.6 C 93 H 20 162/93 H 93 O2 Del Method 04/18/22 16:20 Room Air 04/18/22 10:46 Room Air Laboratory Results Short CBC 04/18/22 Range/Units 11:20 WBC 9.78 (4.8-10.8) K/ul Hgb 15.6 (14.0-18.0) g/dl Hct 46.4 (40.1-51.0) % Plt Count 309 (130-400) K/uL BMP 04/18/22 11:20 Sodium 137 Potassium 4.0 Chloride 100 Carbon Dioxide 27 BUN 20 Creatinine 0.77 Glucose 104 H Calcium 9.6 Liver Function 04/18/22 Range/Units 11:20 Total Bilirubin 0.6 (0.2-1.0) mg/dl AST 18 (13-39) U/L ALT 12 (7-52) U/L Alkaline Phosphatase 98 (34-104) U/L Albumin 3.9 (3.4-5.0) gm/dl Diagnostic Findings Pelvis CT 04/18/22 13:25 CT OF THE PELVIS WITH IV CONTRAST CLINICAL HISTORY: Right perineal wound. COMPARISON STUDY: No previous studies for comparison. TECHNIQUE: Axial images of the pelvis were obtained following intravenous administration of 85 cc of Optiray 350. Sagittal and coronal reconstructions were viewed. Automated exposure control was utilized for the study. A dose lowering technique was utilized adhering to the principles of ALARA. FINDINGS: Diffuse muscular atrophy is noted. IVC filter is partially imaged. There are postoperative findings within the spine and right femur. Irregular bladder wall thickening is probably chronic. There is dilatation of the distal left ureter which may also be chronic. Mildly enlarged left external iliac and inguinal lymph nodes are likely reactive. Erosion of the coccyx and right inferior pubic ramus appears chronic. There is no evidence for acute osteomyelitis within the pelvis or hips. Degenerative changes of both hips are incidentally noted. Note is made of a right peroneal/inferior gluteal wound. There is a 2.8 cm pocket of fluid projecting over the skin. This favors a draining wound. No drainable rim-enhancing fluid collection is identified to suggest an abscess. There is adjacent infiltration consistent with cellulitis. There is no soft tissue gas to suggest necrotizing fasciitis by CT. A moderate amount of stool within the colon and rectum is present. Stool extending to the rectum and anus is noted. Postoperative findings within left iliac bone from bone harvesting are incidentally noted. IMPRESSION: 1. Right perineal/inferior gluteal wound/ulceration. 2.8 cm pocket of fluid projecting over the skin which favors a draining wound. No rim-enhancing fluid collection to suggest abscess. No soft tissue gas. Adjacent infiltration consistent with cellulitis which extends to the base of the scrotum. 2. Chronic erosion of the right inferior pubic ramus and coccyx. No evidence for acute osteomyelitis. 3. Irregular bladder wall thickening, likely chronic. ACT 112: Negative or not required by law. Electronically signed by: Noel Willett M.D. 04/18/2022 3:21 PM Code Status & VTE Plan Code Status Patient is a full code as per my discussion with him. VTE Prophylaxis Plan VTE Prophylaxis will be ordered: No Supervising Physician Co-Signing Physician Notes 66 yo paraplegic male w/ chronic low back/sacral wound presents w/ worsening wound/drainage since 2-3 days [employer] SUPER[employer]OR. Labs, and imagings reviewed at presentation. Pt w/ no fever but w/ increased drainage of the wound. Pt started on zosyn at ed, will c/w vanc and zosyn; wound and blood culture. Gen Sx consult/?? ID consult when c/s available. Hold INR, f/w daily PT/INR. On Exam: Paraplegia, Rt BKA, Rt gluteal fold large ulcer, feces noted. H/L/A exam wnl, rest of the exam as above. I have seen and examined the patient and have discussed the case with the provider above. I agree with the assessment and plan as stated.
[2022-04-18 18:47] LABS: INR 3.1 (0.9-1.1); Prothrombin Time 31.4 Seconds (9.0-12.0)
[2022-04-18 19:37] LABS: Appearance Urine Turbid (Clear); Bacteria Urine Automated 3+ (Negative); Bilirubin Urine Negative (Negative); Blood Urine Trace (Negative); Color Urine Yellow; Glucose Urine UA Negative (Negative); Ketones Urine 1+ (Negative); Leukocyte Esterase Urine 3+ (Negative); Nitrite Urine Positive (Negative); RBC Urine Automated 0-4 /hpf (0-4); Specific Gravity Urine > 1.045 (1.000-1.030); Urobilinogen Urine Negative (Negative); WBC Urine Automated >30 /hpf (0-5); pH Urine >= 9.0 (4.5-7.5)
[2022-04-18 19:50] LABS: Protein Urine 1+ (Negative)
[2022-04-18] MEDS ORDERED: ACETAMINOPHEN 325 MG TAB PO PRN (20:12)
[2022-04-18] MEDS ORDERED: ALUMINUM/MAGNESIUM SUSP 30 ML UDC PO PRN (20:12)
[2022-04-18] MEDS ORDERED: VANCOMYCIN HCL 1,000 MG in SODIUM CHLORIDE 0.9% 250 ML IV STA (20:12)
[2022-04-18] MEDS ORDERED: POLYETHYLENE (MIRALAX) 17 GM PACK PO PRN (20:12)
[2022-04-18] MEDS ORDERED: MAGNESIUM HYDROXIDE SUSP 30 ML UDC PO PRN (20:12)
--- NOTE | 2022-04-18 20:17 | Pharmacy Report ---
Pharmacy [facility] Short Note - Date of Service April 18, 2022 - Assessment & Plan Assessment 66 year old M receiving vancomycin for empiric treatment. Patient seen in ED for open wound/cellulitis. First day of therapy: 04/18/2022 Plan Vancomycin * Load: Vancomycin 1,500 mg IV once on 04/18/2022 at 1904. * Maintenance: Vancomycin 1,000 mg IV q12h starting 04/19/2022 at 0700. * AUC/SIOBHAN is the preferred PK/PD target for vancomycin * AUC guided dosing is effective and associated with decreased risk of nephrotoxicity compared to traditional trough targets * Trough level of 17.6 mcg/mL is predicted to achieve target AUC/SIOBHAN of 400-600 mg/L.hr and may be associated with a 13% risk of nephrotoxicity * Random level ordered for: 04/20/2022 with AM labs. Pharmacy will continue to follow and will adjust dose/frequency as necessary. Thank you.
--- NOTE | 2022-04-18 22:13 | Surgery Consultation ---
Date of Consultation April 18, 2022 Assessment & Plan (1) Open wound of perineum: Patient has been admitted on the hospitalist service. Recommend proceeding as follows: Continue broad-spectrum antibiotics in the form of Zosyn and vancomycin which have been ordered Continue to follow cultures and his antibiotics can be tailored based on these results Offloading measures should be employed to not only prevent worsening of patient's current wound but also prevention of new wounds from forming Hold patient's Coumadin as you are doing The patient will may require debridement in the operating room but we will need to have his INR at acceptable range (1.5 or less) Timing of any debridement will be dependent on his clinical course as it unfolds as well as future INR results Remainder of plan as directed by primary service Supervising Physician Co-Signing Physician Notes Discussed with KEVIN Graham, labs and imaging approved, agree with above. Will plan on debridement early next week, hold coumadin. History of Present Illness Reason for Consultation: Sacral wound Attending Physician: Priscila Rodas MD History of Present Illness This is a 66-year-old male who has a past medical history significant for a traumatic fall resulting in a T12 burst fracture resulting in paraplegia. The patient said he suffered this injury was when he was in his 40s. Patient notes concerning this injury he has been essentially wheelchair-bound. He was admitted to the hospital earlier today due to a nonhealing sacral wound. I asked the patient to see if he has ever had wounds before and he notes that shortly after his accident when he was in his 40s he did have sacral wounds and he did have 2 surgeries involving muscle flaps at that time. The patient has recent been followed at the wound center and was noted to have an unstageable ulcer in the right gluteal fold near his perineum. The area was noted to be draining with foul smelling odor and he was referred to the hospital for potential surgical debridement. The patient notes that he has not had any fevers, shakes, or chills. He denies any pain at the wound. He denies any nausea or vomiting. Upon presentation to the emergency department the patient had labs and imaging which I independent reviewed. A CT scan of the pelvis showed the patient had a right perineal/inferior gluteal wound ulceration with a 2.8 cm pocket of fluid projecting over the skin which was felt to represent a draining wound. There is no evidence of abscess. There is no gas noted in the soft tissue. There is some adjacent infiltration of the tissue is felt to be consistent with cellulitis that expect extended near the base of the scrotum. There is no evidence for osteomyelitis. Labs include a CBC her white blood cell count, hemoglobin, hematocrit, and platelet count were normal. His INR is 3.1. (The patient does take Coumadin for a history of a blood clot in his leg). Chemistry profile showed sodium, potassium, BUN, and creatinine were normal. Urinalysis showed turbid urine with positive nitrites and 3+ leukocyte Estrace. There were greater than 30 white blood cells per high-power field and 3+ bacteria on the study. A COVID test was negative. Since arrival to the hospital the patient has been initiated on antibiotics in form of Zosyn and vancomycin. His Coumadin has been held. He has had a wound culture checked of his right buttock along with urine and blood cultures. All of these cultures are pending. At the time of my interview he was resting comfortably in bed in no distress. Allergies Allergy/AdvReac Type Severity Reaction Status Date / Time No Known Allergies Allergy Verified 04/18/22 13:55 Home Medications Medication Instructions Recorded Confirmed Type ascorbic acid (vitamin C) 500 mg 1,000 mg PO DAILY 09/18/21 04/18/22 History capsule aspirin 81 mg tablet,delayed 81 mg PO DAILY 09/18/21 04/18/22 History release lisinopril 10 1 tab PO DAILY 09/18/21 04/18/22 History mg-hydrochlorothiazide 12.5 mg tablet multivitamin 1 tab PO DAILY 09/18/21 04/18/22 History warfarin 5 mg tablet 7.5 mg PO TUTH 09/18/21 04/18/22 History atorvastatin 40 mg tablet 40 mg PO DAILY 04/18/22 04/18/22 History calcium carbonate 600 mg-vitamin 1 tab PO BID 04/18/22 04/18/22 History D3 10 mcg (400 unit) tablet nitrofurantoin macrocrystal 100 mg 100 mg PO DAILY 04/18/22 04/18/22 History capsule warfarin 5 mg tablet 5 mg PO SUMOWEFRSA 04/18/22 04/18/22 History zinc acetate 50 mg (zinc) capsule 50 mg PO DAILY 04/18/22 04/18/22 History Patient History Medical History Chronic UTI Hypercholesteremia Hypertension Neurogenic bladder Paraplegia Peripheral artery disease Self-catheterizes urinary bladder T12 vertebral fracture Trauma Pt states he fell 25 ft off of scaffolding 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 Surgical History H/O spinal fusion Hx of right BKA S/P flap graft Family History Father Cancer Social History Smoking Status: Former smoker Second Hand Exposure: No; Do You Dip or Chew Tobacco: No; Tobacco Cessation Education Requested by Patient: No Hx Alcohol Use: Yes Alcohol type: beer Alcohol Intake Frequency: 4 or More x per/Week Hx Substance Use: No Preferred Language: Pakistani Communication Ability: Effective Visual Impairment: Limited Hearing Ability: Hard of Hearing Director Of Operations Support Required: No Beliefs That Will Affect Care: None Current Living Situation: Alone current occupational status: disabled Other Information That Helps Us Care for You: No Feels Safe at Home: Yes Safety Concerns: Feels Safe At This Time caffeine: Yes during the past year weight has: decreased > 10 lbs Physical Activity Frequency: Does not Exercise Gender Identity: Male Assistive Devices: Glasses, Mechanical Lift and Scooter/Electric Scooter Review of Systems Constitutional: no fever and no chills Eyes: no eye pain Ear, Nose, Mouth, Throat: no ear pain Respiratory: no cough Cardiovascular: no chest pain Gastrointestinal: no abdominal pain, no nausea and no vomiting Genitourinary: no flank pain Musculoskeletal: no back pain Integumentary: no rash Neurologic: Paraplegia of the lower extremities Physical Exam Physical Exam: Patient's perineum/sacrum were examined. Patient had approx imately 4 x 2 cm wound on the right gluteal crease extending in close proximity to the scrotum. There is no crepitus noted in the soft tissue. There is some clear drainage at the time of my exam that was slightly malodorous. There appear to be some necrotic tissue in the wound. There is a small amount of surrounding erythema. This did not appear to involve the scrotum. Constitutional: WD/WN, vitals as above Eyes: no conjunctival abnormality ENMT: Ears: no hearing impairment and no external ear abnormality Mouth: no oropharynx abnormality Neck: trachea midline Respiratory: normal respiratory effort; no respiratory distress and no labored breathing Cardiovascular: Rate/Rhythm: regular rate and regular rhythm Gastrointestinal (Abdomen): Soft, nonrigid, nondistended. Nontender. Musculoskeletal: Right BKA noted. Neurologic: Lower extremity paraplegia noted Psychiatric: A+Ox3, euthymic affect Results & Data ([facility]) Vital Signs (Past 12 Hours) Vital Signs Temp Pulse Pulse Resp BP BP Pulse Ox 04/18/22 20:10 37.1 C 71 16 152/81 H 95 04/18/22 16:20 82 18 159/88 H 97 04/18/22 10:46 36.6 C 93 H 20 162/93 H 93 O2 Del Method 04/18/22 20:10 Room Air 04/18/22 16:20 Room Air 04/18/22 10:46 Room Air PG Care Time/CCT Total # of Minutes Spent Total Time Spent with Patient: Total time spent is greater than 50% in coordination of care (as documented) at patient's floor/unit and/or counseling patient: Coding Level of Care Code 75389 Inpt Consult Level 5 Diagnoses Open wound of perineum
[2022-04-18] MEDS: PIPERACILLIN/TAZOBACTAM 3.375 GM in DEXTROSE 5% 100 ML IV SCH (23:08)
[2022-04-19] MEDS: VANCOMYCIN HCL 1,000 MG in SODIUM CHLORIDE 0.9% 250 ML IV SCH ×2 (06:10→19:34)
--- NOTE | 2022-04-19 06:11 | Surgery Progress Note ---
Date of Service April 19, 2022 Assessment & Plan (1) Open wound of perineum: Plan: Patient has been admitted on the hospitalist service. Recommend proceeding as follows: Continue offloading measures as described in previous documentation Wound culture noted to have gram-negative bacilli. Continue to follow culture results at which time antibiotics can be tailored based on these results Continue broad-spectrum antibiotics in the form of vancomycin and Zosyn for the present time Check a.m. labs when available Patient may require surgical debridement but he was noted to have a supratherapeutic INR yesterday. Timing of any procedure will be dependent on when his INR is in an acceptable range (would prefer 1.5 or less) As patient does not appear septic, (he is not hypotensive, tachycardic, or febrile, and did not have leukocytosis at time of admission) would not aggressively reverse his Coumadin at this time as this may make reanticoagulated more difficultwould merely hold Coumadin and let INR drift down Remainder of plan as directed by primary service Admission and Anticipated Discharge Date Admission Date: April 18, 2022 Supervising Physician Co-Signing Physician Notes Patient seen and examined, labs and image reviewed, agree with above. 66-year-old paraplegic male with history of sacral and perineal pressure ulcers presents from the wound clinic with the same. It had been healed completely and then was noted to have recurred. He was sent to the emergency room for admis violette yesterday due to concern for abscess. On exam he is afebrile stable vitals. The wounds were examined and there are 2 separate wounds that currently have some eschar and fibrinous exudate. CT scan was personally reviewed and interpreted by myself and agree with the assessment with soft tissue wounds with no evidence of osteomyelitis or abscess. Currently INR 3.6, please hold Coumadin in anticipation of possible debridement at the bedside or in the operating room early next week. Subjective Patient is resting comfortably in bed. Since my visit last night he denies any lightheadedness, dizziness, nausea, vomiting, fevers, shakes, or chills. Physical Exam Physical Exam: Wound not assessed at this time. Will examined with attending physician on a.m. rounds. Results & Data ([facility]) Vital Signs (Past 12 Hours) Vital Signs Temp Pulse Resp BP BP Pulse Ox O2 Del Method 04/18/22 22:52 Room Air 04/18/22 22:28 37.1 C 71 16 152/81 H 95 Room Air 04/18/22 22:16 36.9 C 65 16 138/78 94 Room Air 04/18/22 20:10 37.1 C 71 16 152/81 H 95 Room Air PG Care Time/CCT Total # of Minutes Spent Total Time Spent with Patient: Total time spent is greater than 50% in coordination of care (as documented) at patient's floor/unit and/or counseling patient: Coding Level of Care Code 28838 Subseq Hosp Care Lvl 1 Diagnoses Open wound of perineum
[2022-04-19 07:25] LABS: Hematocrit (blood only) 41.4 % (40.1-51.0); Mean Corpuscular Hemoglobin 31.9 pg (25.0-34.0); Mean Corpuscular Hgb Conc 33.8 g/dL (32.0-36.0); Mean Corpuscular Volume 94.3 fL (80.0-100.0); Mean Platelet Volume 9.6 fL (9.4-12.4); Platelet Count 261 K/uL (130-400); RDW Coefficient of Variation 14.1 % (11.5-14.5); RDW Standard Deviation 48.4 fL (36.4-46.3); Red Blood Count 4.39 M/uL (4.63-6.08); White Blood Count 7.23 K/ul (4.8-10.8)
[2022-04-19] MEDS: LISINOPRIL/HCTZ 10/12.5MG TAB PO SCH (07:41)
[2022-04-19] MEDS: PIPERACILLIN/TAZOBACTAM 3.375 GM in DEXTROSE 5% 100 ML IV SCH ×3 (07:41→23:03)
[2022-04-19] MEDS: ATORVASTATIN 40 MG TAB PO SCH (07:41)
[2022-04-19 07:45] LABS: Calcium 8.5 mg/dl (8.5-10.1); Creatinine Clr Calc Pharmacy 121.5 ml/min; Est GFR (African American) 122.3 ml/min; Est GFR (Non-African American) 105.5 ml/min; Magnesium 1.7 mg/dl (1.7-2.4); Phosphorus 3.3 mg/dl (2.5-4.9); Potassium 3.4 mmol/L (3.5-5.1)
[2022-04-19 07:51] LABS: INR 3.6 (0.9-1.1); Prothrombin Time 36.1 Seconds (9.0-12.0)
[2022-04-19] MEDS ORDERED: POTASSIUM CHLORIDE CRTAB 20 MEQ TABCR PO STA (07:57)
[2022-04-19] MEDS ORDERED: NON-FORMULARY MEDICATION (Zinc Acetate 50 mg (zinc) Capsule) PO SCH (09:00)
[2022-04-19] MEDS ORDERED: PHYTONADIONE 5 MG TAB PO STA (11:04)
[2022-04-19] MEDS: MULTIVITAMIN TAB PO SCH (11:30)
[2022-04-19] MEDS: ASPIRIN 81 MG ECTAB PO SCH (11:30)
--- NOTE | 2022-04-19 12:08 | Pharmacy Report ---
Pharmacy [facility] Short Note - Date of Service April 19, 2022 - Assessment & Plan Assessment * Vancomycin level obtained this AM was drawn/entered in error. Vancomycin was infusing at the time. No change is needed Plan Vancomycin * Continue dose of 1000 mg IV every 12 hours * Trough or random level ordered for: 04/20 @ 0630 Pharmacy will continue to follow and will adjust dose/frequency as necessary. Thank you.
--- NOTE | 2022-04-19 17:02 | Hospitalist Progress Note ---
Date of Service April 19, 2022 Assessment & Plan (1) Paraplegia: (2) Unstageable pressure ulcer of buttock: Plan: Patient presenting by referral to the wound care center for evaluation of large, unstageable pressure ulcer of the right buttock/gluteal fold Pelvis CT shows Right perineal/inferior gluteal wound/ulceration. 2.8 cm pocket of fluid projecting over the skin which favors a draining wound. No rim- enhancing fluid collection to suggest abscess. No soft tissue gas. Adjacent infiltration consistent with cellulitis which extends to the base of the scrotum. Does not appear septic S/p Zosyn in the ED, continue with and add vancomycin Follow blood and wound cultures General surgery consult for possible surgical debridement Wound care nurse consult Appreciate general surgery input and recommendation for possible IND on Thursday Patient remained stable and will continue with current antibiotic INR level remains elevated at 3.6 Will give 2.5 mg vitamin K orally today Will check INR on Thursday (3) History of CVA (cerebrovascular accident): (4) PAD (peripheral artery disease): Plan: Anticoagulated on Coumadin, INR 3.1 Will hold Coumadin tonight due to possible surgical intervention tomorrow Continue statin (5) Neurogenic bladder: Plan: Patient self caths 4 times a day, will place Reveles while admitted On chronic nitrofurantoin for UTI suppression DVT prophylaxis SCDs due to possible surgical intervention tomorrow Admission and Anticipated Discharge Date Admission Date: April 18, 2022 Subjective 04/19/2022 The patient was seen and examined in medical floor He remained stable and denies any symptoms Denies any pain in the perineum, any nausea or vomiting, any fever and or chills Review of Systems Review of Systems: All systems reviewed and are unremarkable except as noted below Physical Exam Physical Exam: Lying in bed comfortable Constitutional: well developed, well nourished and + obese; not ill appearing Eyes: PERRL, conjunctivae normal, anicteric sclerae ENMT: external ear and nose normal, oropharynx normal Respiratory: no respiratory distress Auscultation: + crackles Cardiovascular: Rate/Rhythm: regular rate and regular rhythm; not tachycardic Heart Sounds: normal S1 and normal S2; no murmur Extremities: + edema (Bilateral leg edema) Gastrointestinal (Abdomen): Inspection/Auscultation: normal bowel sounds; abdomen not distended Percussion/Palpation: + abdomen tender and abdomen soft Musculoskeletal: No acute arthritis in any joint Neurologic: Alert, awake and oriented x3. He has paraplegia Results & Data Results & Data ([facility]) Vital Signs (Past 12 Hours) Vital Signs Temp Pulse Resp BP Pulse Ox O2 Del Method 04/19/22 14:55 36.6 C 64 16 115/64 94 Room Air 04/19/22 07:45 Room Air 04/19/22 07:36 36.7 C 61 18 120/72 95 Room Air 04/19/22 06:58 36.7 C 60 16 127/76 95 Room Air Laboratory Results Short CBC 04/19/22 Range/Units 07:03 WBC 7.23 (4.8-10.8) K/ul Hgb 14.0 (14.0-18.0) g/dl Hct 41.4 (40.1-51.0) % Plt Count 261 (130-400) K/uL BMP 04/19/22 07:03 Sodium 138 Potassium 3.4 L Chloride 105 Carbon Dioxide 24 BUN 18 Creatinine 0.58 L Glucose 95 Calcium 8.5 Urine 04/18/22 Range/Units 18:45 Urine Color Yellow Urine Appearance Turbid A (Clear) Urine pH >= 9.0 H (4.5-7.5) Ur Specific [place] > 1.045 H (1.000-1.030) Urine Protein 1+ H (Negative) Urine Glucose (UA) Negative (Negative) Medications Administered Current Inpatient Medications Acetaminophen (Acetaminophen 325 Mg Tab) 650 mg PO Q4H PRN PRN Reason: Pain or Fever Stop: 05/18/22 20:11 Al Hydrox/Mg Hydrox/Simethicone (Aluminum/Magnesium Susp 30 Ml Udc) 15 ml PO Q4H PRN PRN Reason: Dyspepsia Stop: 05/18/22 20:11 Aspirin (Aspirin 81 Mg Ectab) 81 mg PO DAILY [facility] Stop: 05/19/22 08:59 Last Admin: 04/19/22 11:30 Dose: 81 mg Atorvastatin Calcium (Atorvastatin 40 Mg Tab) 40 mg PO DAILY [facility] Stop: 05/19/22 08:59 Last Admin: 04/19/22 07:41 Dose: 40 mg Lisinopril/HCTZ (Lisinopril/Hctz 10/12.5mg Tab) 1 tab PO DAILY [facility] Stop: 05/19/22 08:59 Last Admin: 04/19/22 07:41 Dose: 1 tab Vancomycin HCl 1,000 mg/ (Sodium Chloride) 270 mls @ 200 mls/hr IV Q12H [facility]; Protocol Stop: 04/26/22 06:59 Last Infusion: 04/19/22 07:42 Dose: Infused Piperacillin Sod/Tazobactam (Sod 3.375 gm/ Dextrose) 115 mls @ 28.75 mls/hr IV Q8H [facility]; Protocol Stop: 04/25/22 23:29 Last Admin: 04/19/22 15:33 Dose: 28.8 mls/hr Magnesium Hydroxide (Magnesium Hydroxide Susp 30 Ml Udc) 30 ml PO Q12H PRN PRN Reason: Constipation Stop: 05/18/22 20:11 Miscellaneous Information (Vancomycin Consult Active) 1 each N/A UD PRN PRN Reason: Consult Stop: 05/18/22 18:05 Multivitamins (Multivitamin Tab) 1 tab PO DAILY [facility] Stop: 05/19/22 08:59 Last Admin: 04/19/22 11:30 Dose: 1 tab Polyethylene Glycol (Polyethylene (Miralax) 17 Gm Pack) 17 gm PO DAILY PRN PRN Reason: Constipation Stop: 05/18/22 20:11
[2022-04-20] MEDS ORDERED: VANCOMYCIN LEVEL SCH (06:30)
[2022-04-20] MEDS: PIPERACILLIN/TAZOBACTAM 3.375 GM in DEXTROSE 5% 100 ML IV SCH ×3 (06:30→22:48)
[2022-04-20] MEDS: VANCOMYCIN HCL 1,000 MG in SODIUM CHLORIDE 0.9% 250 ML IV SCH (06:45)
[2022-04-20 07:23] LABS: Creatinine Clr Calc Pharmacy 115.5 ml/min; Est GFR (African American) 119.8 ml/min; Est GFR (Non-African American) 103.3 ml/min
[2022-04-20 07:24] LABS: INR 2.8 (0.9-1.1); Prothrombin Time 28.5 Seconds (9.0-12.0)
[2022-04-20] MEDS: MULTIVITAMIN TAB PO SCH (08:32)
[2022-04-20] MEDS: ATORVASTATIN 40 MG TAB PO SCH (08:32)
[2022-04-20] MEDS: LISINOPRIL/HCTZ 10/12.5MG TAB PO SCH (08:32)
[2022-04-20] MEDS: ASPIRIN 81 MG ECTAB PO SCH (08:32)
--- NOTE | 2022-04-20 13:05 | Hospitalist Progress Note ---
Date of Service April 20, 2022 Assessment & Plan (1) Paraplegia: (2) Unstageable pressure ulcer of buttock: Plan: Patient presenting by referral to the wound care center for evaluation of large, unstageable pressure ulcer of the right buttock/gluteal fold Pelvis CT shows Right perineal/inferior gluteal wound/ulceration. 2.8 cm pocket of fluid projecting over the skin which favors a draining wound. No rim- enhancing fluid collection to suggest abscess. No soft tissue gas. Adjacent infiltration consistent with cellulitis which extends to the base of the scrotum. Does not appear septic S/p Zosyn in the ED, continue with and add vancomycin Follow blood and wound cultures General surgery consult for possible surgical debridement Wound care nurse consult Appreciate general surgery input and recommendation for possible I&D on Thursday Patient remained stable and will continue with current antibiotic Wound culture is growing Morganella morganii and urine culture is growing Providencia rettgeri-antibiotic is directed accordingly Vancomycin is stopped Await I&D for tomorrow INR level remains elevated at 3.6 Will give 2.5 mg vitamin K orally today Will check INR on Thursday (3) History of CVA (cerebrovascular accident): (4) PAD (peripheral artery disease): Plan: Anticoagulated on Coumadin, INR 3.1 Will hold Coumadin tonight due to possible surgical intervention tomorrow Continue statin (5) Neurogenic bladder: Plan: Patient self caths 4 times a day, will place [place] while admitted On chronic nitrofurantoin for UTI suppression DVT prophylaxis SCDs due to possible surgical intervention tomorrow Admission and Anticipated Discharge Date Admission Date: April 18, 2022 Subjective 04/19/2022 The patient was seen and examined in medical floor He remained stable and denies any symptoms Denies any pain in the perineum, any nausea or vomiting, any fever and or chills 04/20/2022 The patient was seen and examined in medical floor He remains stable without any pain and/or fever or chills Awaiting I&D tomorrow Review of Systems Review of Systems: All systems reviewed and are unremarkable except as noted below Physical Exam Physical Exam: Lying in bed comfortable Constitutional: well developed, well nourished and + obese; not ill appearing Eyes: PERRL, conjunctivae normal, anicteric sclerae ENMT: external ear and nose normal, oropharynx normal Respiratory: no respiratory distress Auscultation: + crackles Cardiovascular: Rate/Rhythm: regular rate and regular rhythm; not tachycardic Heart Sounds: normal S1 and normal S2; no murmur Extremities: + edema (Bilateral leg edema) Gastrointestinal (Abdomen): Inspection/Auscultation: normal bowel sounds; abdomen not distended Percussion/Palpation: + abdomen tender and abdomen soft Results & Data Results & Data ([facility]) Vital Signs (Past 12 Hours) Vital Signs Temp Pulse Resp BP Pulse Ox O2 Del Method 04/20/22 07:50 Room Air 04/20/22 07:14 36.6 C 67 18 111/68 94 Room Air Laboratory Results BMP 04/20/22 06:40 Creatinine 0.61 Medications Administered Current Inpatient Medications Acetaminophen (Acetaminophen 325 Mg Tab) 650 mg PO Q4H PRN PRN Reason: Pain or Fever Stop: 05/18/22 20:11 Al Hydrox/Mg Hydrox/Simethicone (Aluminum/Magnesium Susp 30 Ml Udc) 15 ml PO Q4H PRN PRN Reason: Dyspepsia Stop: 05/18/22 20:11 Aspirin (Aspirin 81 Mg Ectab) 81 mg PO DAILY [facility] Stop: 05/19/22 08:59 Last Admin: 04/20/22 08:32 Dose: 81 mg Atorvastatin Calcium (Atorvastatin 40 Mg Tab) 40 mg PO DAILY [facility] Stop: 05/19/22 08:59 Last Admin: 04/20/22 08:32 Dose: 40 mg Lisinopril/HCTZ (Lisinopril/Hctz 10/12.5mg Tab) 1 tab PO DAILY [facility] Stop: 05/19/22 08:59 Last Admin: 04/20/22 08:32 Dose: 1 tab Piperacillin Sod/Tazobactam (Sod 3.375 gm/ Dextrose) 115 mls @ 28.75 mls/hr IV Q8H [facility]; Protocol Stop: 04/25/22 23:29 Last Infusion: 04/20/22 10:30 Dose: Infused Magnesium Hydroxide (Magnesium Hydroxide Susp 30 Ml Udc) 30 ml PO Q12H PRN PRN Reason: Constipation Stop: 05/18/22 20:11 Multivitamins (Multivitamin Tab) 1 tab PO DAILY [facility] Stop: 05/19/22 08:59 Last Admin: 04/20/22 08:32 Dose: 1 tab Polyethylene Glycol (Polyethylene (Miralax) 17 Gm Pack) 17 gm PO DAILY PRN PRN Reason: Constipation Stop: 05/18/22 20:11
[2022-04-21] MEDS: PIPERACILLIN/TAZOBACTAM 3.375 GM in DEXTROSE 5% 100 ML IV SCH ×2 (06:37→15:42)
[2022-04-21 07:04] LABS: Basophils # (auto) 0.02 K/uL (0-0.2); Basophils % (auto) 0.3 %; Eosinophils # (auto) 0.35 K/uL (0-0.50); Eosinophils % (auto) 5.2 %; Hematocrit (blood only) 41.6 % (40.1-51.0); Hemoglobin 14.1 g/dl (14.0-18.0); Immature Granulocytes # (auto) 0.04 K/uL (0.00-0.02); Immature Granulocytes % (auto) 0.6 %; Lymphocytes # (auto) 1.32 K/uL (1.2-3.4); Lymphocytes % (auto) 19.6 %; Mean Corpuscular Hemoglobin 31.7 pg (25.0-34.0); Mean Corpuscular Hgb Conc 33.9 g/dL (32.0-36.0); Mean Corpuscular Volume 93.5 fL (80.0-100.0); Mean Platelet Volume 9.7 fL (9.4-12.4); Monocytes # (auto) 0.58 K/uL (0.24-0.82); Monocytes % (auto) 8.6 %; Neutrophils # (auto) 4.43 K/uL (1.4-6.5); Neutrophils % (auto) 65.7 %; Platelet Count 269 K/uL (130-400); RDW Coefficient of Variation 13.9 % (11.5-14.5); RDW Standard Deviation 48.5 fL (36.4-46.3); Red Blood Count 4.45 M/uL (4.63-6.08); White Blood Count 6.74 K/ul (4.8-10.8)
[2022-04-21 07:25] LABS: BUN Creatinine Ratio 18.2 (10-20); Calcium 8.4 mg/dl (8.5-10.1); Creatinine Clr Calc Pharmacy 91.5 ml/min; Est GFR (African American) 108.8 ml/min; Est GFR (Non-African American) 93.9 ml/min; Potassium 3.8 mmol/L (3.5-5.1)
[2022-04-21 07:33] LABS: INR 2.1 (0.9-1.1); Prothrombin Time 21.5 Seconds (9.0-12.0)
[2022-04-21] MEDS: ASPIRIN 81 MG ECTAB PO SCH (09:23)
[2022-04-21] MEDS: ATORVASTATIN 40 MG TAB PO SCH (09:23)
[2022-04-21] MEDS: MULTIVITAMIN TAB PO SCH (09:23)
[2022-04-21] MEDS: LISINOPRIL/HCTZ 10/12.5MG TAB PO SCH (10:27)
[2022-04-21] MEDS ORDERED: PHYTONADIONE 5 MG TAB PO STA (11:02)
--- NOTE | 2022-04-21 11:50 | Hospitalist Progress Note ---
Date of Service April 21, 2022 Assessment & Plan (1) Paraplegia: (2) Unstageable pressure ulcer of buttock: Plan: Patient presenting by referral to the wound care center for evaluation of large, unstageable pressure ulcer of the right buttock/gluteal fold Pelvis CT shows Right perineal/inferior gluteal wound/ulceration. 2.8 cm pocket of fluid projecting over the skin which favors a draining wound. No rim- enhancing fluid collection to suggest abscess. No soft tissue gas. Adjacent infiltration consistent with cellulitis which extends to the base of the scrotum. Does not appear septic S/p Zosyn in the ED, continue with and add vancomycin Follow blood and wound cultures General surgery consult for possible surgical debridement Wound care nurse consult Appreciate general surgery input and recommendation for possible I&D on Thursday Patient remained stable and will continue with current antibiotic Wound culture is growing Morganella morganii and urine culture is growing Providencia rettgeri-antibiotic is directed accordingly Vancomycin is stopped Will have I&D tomorrow INR level remains elevated at 3.6 Will give 2.5 mg vitamin K orally today INR remains elevated at 2.1 and will give him 2.5 of vitamin K today INR is not being down as he has been on Zosyn We will check INR tomorrow and possible surgery tomorrow (3) History of CVA (cerebrovascular accident): (4) PAD (peripheral artery disease): Plan: Anticoagulated on Coumadin, INR 3.1 Will hold Coumadin tonight due to possible surgical intervention tomorrow Continue statin (5) Neurogenic bladder: Plan: Patient self caths 4 times a day, will place [place] while admitted On chronic nitrofurantoin for UTI suppression DVT prophylaxis SCDs due to possible surgical intervention tomorrow Admission and Anticipated Discharge Date Admission Date: April 18, 2022 Subjective 04/19/2022 The patient was seen and examined in medical floor He remained stable and denies any symptoms Denies any pain in the perineum, any nausea or vomiting, any fever and or chills 04/20/2022 The patient was seen and examined in medical floor He remains stable without any pain and/or fever or chills Awaiting I&D tomorrow 04/21/2022 The patient was seen and examined in the medical floor He does not have any complaint and awaiting I&D No fever and no chills and no nausea and/or vomiting Review of Systems Review of Systems: All systems reviewed and are unremarkable except as noted below Physical Exam Physical Exam: Lying in bed comfortable Constitutional: well developed, well nourished and + obese; not ill appearing Eyes: PERRL, conjunctivae normal, anicteric sclerae ENMT: external ear and nose normal, oropharynx normal Respiratory: no respiratory distress Auscultation: + crackles Cardiovascular: Rate/Rhythm: regular rate and regular rhythm; not tachycardic Heart Sounds: normal S1 and normal S2; no murmur Extremities: + edema (Bilateral leg edema) Gastrointestinal (Abdomen): Inspection/Auscultation: normal bowel sounds; abdomen not distended Percussion/Palpation: + abdomen tender and abdomen soft Musculoskeletal: No acute arthritis involving any joint but has paraplegia Neurologic: Alert, awake and oriented x3 Results & Data Results & Data ([facility]) Vital Signs (Past 12 Hours) Vital Signs Temp Pulse Pulse Resp BP Pulse Ox O2 Del Method 04/21/22 11:26 36.7 C 56 L 16 144/94 H 93 Room Air 04/21/22 07:51 36.7 C 57 L 16 130/84 95 Room Air 04/21/22 07:13 36.6 C 60 14 137/80 95 Room Air Laboratory Results Short CBC 04/21/22 Range/Units 06:41 WBC 6.74 (4.8-10.8) K/ul Hgb 14.1 (14.0-18.0) g/dl Hct 41.6 (40.1-51.0) % Plt Count 269 (130-400) K/uL [facility] 04/21/22 06:41 Sodium 136 Potassium 3.8 Chloride 104 Carbon Dioxide 28 BUN 14 Creatinine 0.77 Glucose 106 H Calcium 8.4 L Medications Administered Current Inpatient Medications Acetaminophen (Acetaminophen 325 Mg Tab) 650 mg PO Q4H PRN PRN Reason: Pain or Fever Stop: 05/18/22 20:11 Al Hydrox/Mg Hydrox/Simethicone (Aluminum/Magnesium Susp 30 Ml Udc) 15 ml PO Q4H PRN PRN Reason: Dyspepsia Stop: 05/18/22 20:11 Aspirin (Aspirin 81 Mg Ectab) 81 mg PO DAILY [facility] Stop: 05/19/22 08:59 Last Admin: 04/21/22 09:23 Dose: 81 mg Atorvastatin Calcium (Atorvastatin 40 Mg Tab) 40 mg PO DAILY [facility] Stop: 05/19/22 08:59 Last Admin: 04/21/22 09:23 Dose: 40 mg Lisinopril/HCTZ (Lisinopril/Hctz 10/12.5mg Tab) 1 tab PO DAILY [facility] Stop: 05/19/22 08:59 Last Admin: 04/21/22 10:27 Dose: 1 tab Piperacillin Sod/Tazobactam (Sod 3.375 gm/ Dextrose) 115 mls @ 28.75 mls/hr IV Q8H [facility]; Protocol Stop: 04/25/22 23:29 Last Admin: 04/21/22 06:37 Dose: 28.8 mls/hr Magnesium Hydroxide (Magnesium Hydroxide Susp 30 Ml Udc) 30 ml PO Q12H PRN PRN Reason: Constipation Stop: 05/18/22 20:11 Multivitamins (Multivitamin Tab) 1 tab PO DAILY [facility] Stop: 05/19/22 08:59 Last Admin: 04/21/22 09:23 Dose: 1 tab Polyethylene Glycol (Polyethylene (Miralax) 17 Gm Pack) 17 gm PO DAILY PRN PRN Reason: Constipation Stop: 05/18/22 20:11
--- NOTE | 2022-04-21 15:20 | Electrocardiogram Report ---
Test Reason : Blood Pressure : / mmHG Vent. Rate : 065 BPM Atrial Rate : 065 BPM P-R Int : 144 ms QRS Dur : 086 ms QT Int : 402 ms P-R-T Axes : 069 -03 030 degrees QTc Int : 418 ms Normal sinus rhythm Normal ECG When compared with ECG of 15-DEC-2016 16:02, No significant change Confirmed by Jerzy Hawthorne ([id number]) on 04/21/2022 3:20:21 PM Referred By: REFERRED SELF Confirmed By:Jerzy Hawthorne
--- NOTE | 2022-04-21 15:23 | Anesthesiology Consultation ---
Date of Service April 21, 2022 Assessment & Plan (1) Encounter for pre-operative examination: Chart Review Chart Review: Acceptable Risk for Surgery and Patient NOT seen in Pre Admission Testing Consults Requested none History Surgery Operation Date: 04/22/22 12:00 Proposed Procedures p Debridement Perineal Wound - Padilla Marquez DO, FACS Height/Weight Height: 5 ft 11 in Weight: 69.5 kg Allergies Allergy/AdvReac Type Severity Reaction Status Date / Time No Known Allergies Allergy Verified 04/18/22 13:55 Medications Home Medications Medication Instructions Recorded Confirmed Last Taken ascorbic acid (vitamin C) 500 mg 1,000 mg PO DAILY 09/18/21 04/18/22 04/17/22 capsule aspirin 81 mg tablet,delayed 81 mg PO DAILY 09/18/21 04/18/22 04/17/22 release lisinopril 10 1 tab PO DAILY 09/18/21 04/18/22 04/18/22 mg-hydrochlorothiazide 12.5 mg tablet multivitamin 1 tab PO DAILY 09/18/21 04/18/22 04/17/22 warfarin 5 mg tablet 7.5 mg PO TUTH 09/18/21 04/18/22 04/17/22 atorvastatin 40 mg tablet 40 mg PO DAILY 04/18/22 04/18/22 Unknown calcium carbonate 600 mg-vitamin 1 tab PO BID 04/18/22 04/18/22 Unknown D3 10 mcg (400 unit) tablet nitrofurantoin macrocrystal 100 mg 100 mg PO DAILY 04/18/22 04/18/22 04/17/22 capsule warfarin 5 mg tablet 5 mg PO [facility] 04/18/22 04/18/22 Unknown zinc acetate 50 mg (zinc) capsule 50 mg PO DAILY 04/18/22 04/18/22 04/17/22 Active Medications Generic Name Dose Route Start Last Admin Trade Name Freq PRN Reason Stop Dose Admin Aspirin 81 mg 04/19/22 09:00 04/21/22 09:23 Aspirin 81 Mg Ectab PO 05/19/22 08:59 81 mg DAILY [facility] Administration Atorvastatin Calcium 40 mg 04/19/22 09:00 04/21/22 09:23 Atorvastatin 40 Mg Tab PO 05/19/22 08:59 40 mg DAILY [facility] Administration Lisinopril/HCTZ 1 tab 04/19/22 09:00 04/21/22 10:27 Lisinopril/Hctz 12.5mg Tab PO 05/19/22 08:59 1 tab DAILY [facility] Administration Piperacillin Sod/Tazobactam 115 mls @ 28.75 mls/hr 04/18/22 23:30 04/21/22 11:51 Sod 3.375 gm/ Dextrose IV 04/25/22 23:29 Infused Q8H [facility] Infusion Protocol Multivitamins 1 tab 04/19/22 09:00 04/21/22 09:23 Multivitamin Tab PO 05/19/22 08:59 1 tab DAILY [facility] Administration Past Medical History Medical History Chronic UTI Hypercholesteremia Hypertension Neurogenic bladder Paraplegia Peripheral artery disease Self-catheterizes urinary bladder T12 vertebral fracture Trauma Pt states he fell 25 ft off of scaffolding 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 Past Family History Family History Father Cancer Past Surgical History Surgical History H/O spinal fusion Hx of right BKA S/P flap graft Social History Smoking Status: Former smoker Do You Dip or Chew Tobacco: No Hx Alcohol Use: Yes Alcohol type: beer alcohol intake frequency: 0-2 drinks per day Hx Substance Use: No Physical Exam Vital Signs Last Vital Signs Temp 36.8 C 04/21/22 15:01 Pulse 61 04/21/22 15:01 Resp 18 04/21/22 15:01 BP 107/70 04/21/22 15:01 Pulse Ox 95 04/21/22 15:01 O2 Del Method 04/21/22 15:01 Testing Laboratory Results 04/21/22 06:41 04/21/22 06:41 PT 21.5 Seconds (9.0-12.0) H 04/21/22 06:41 INR 2.1 (0.9-1.1) H 04/21/22 06:41 Urine Color Yellow 04/18/22 18:45 Urine Appearance Turbid (Clear) A 04/18/22 18:45 Urine pH >= 9.0 (4.5-7.5) H 04/18/22 18:45 Ur Specific [place] > 1.045 (1.000-1.030) H 04/18/22 18:45 Urine Protein 1+ (Negative) H 04/18/22 18:45 Urine Glucose (UA) Negative (Negative) 04/18/22 18:45 Urine Ketones 1+ (Negative) H 04/18/22 18:45 Urine Nitrite Positive (Negative) A 04/18/22 18:45 Ur Leukocyte Esterase 3+ (Negative) H 04/18/22 18:45 Urine WBC (Auto) >30 /hpf (0-5) H 04/18/22 18:45 Urine RBC (Auto) 0-4 /hpf (0-4) 04/18/22 18:45 U Hyaline Cast (Auto) 1-5 /lpf (0-5) 04/18/22 18:45 U Epithel Cells (Auto) 5-10 /lpf (0-5) H 04/18/22 18:45 Urine Bacteria (Auto) 3+ (Negative) H 04/18/22 18:45 04/18/22 16:45 Aerobic Blood Culture - Preliminary Blood No growth in Aerobic bottle after 48 hours. Anaerobic Blood Culture - Final 04/18/22 16:45 Aerobic Blood Culture - Preliminary Blood No growth in Aerobic bottle after 48 hours. Anaerobic Blood Culture - Preliminary No growth in Anaerobic bottle after 48 hours. 04/18/22 18:45 Urine Culture - Final Urine,Clean Catch Providencia rettgeri 04/18/22 18:53 Gram Stain - Final Buttock Aerobic and Anaerobic Culture - Preliminary Morganella morganii Electrocardiogram Date: 04/21/22 Test Reason : Blood Pressure : / mmHG Vent. Rate : 065 BPM Atrial Rate : 065 BPM P-R Int : 144 ms QRS Dur : 086 ms QT Int : 402 ms P-R-T Axes : 069 -03 030 degrees QTc Int : 418 ms Normal sinus rhythm Normal ECG When compared with ECG of 15-DEC-2016 16:02, No significant change Confirmed by Jerzy Hawthorne ([id number]) on 04/21/2022 3:20:21 PM Referred By: REFERRED SELF Confirmed By:Jerzy Hawthorne
--- NOTE | 2022-04-21 15:50 | Surgery Progress Note ---
Date of Service April 21, 2022 Assessment & Plan (1) Unstageable pressure ulcer of buttock: Plan: Patient with pressure ulcer that requires debridement, INR 2 today Recheck INR in the morning N.p.o. after midnight Plan for debridement pressure ulcer of the buttock in OR tomorrow Risk discussed to include but not limited to bleeding, infection, prolonged wound healing, damage surrounding structures, need for future more extensive surgery, and the risk of anesthesia Admission and Anticipated Discharge Date Admission Date: April 18, 2022 Subjective 66-year-old paraplegic male admitted with pressure wound of his buttock/perineum. INR was 2 this morning. Physical Exam Skin: no rashes, warm and dry + wound (4 x 2 cm wound gluteal crease with eschar) Results & Data ([facility]) Vital Signs (Past 12 Hours) Vital Signs Temp Pulse Pulse Resp BP Pulse Ox O2 Del Method 04/21/22 15:01 36.8 C 61 18 107/70 95 Room Air 04/21/22 11:26 36.7 C 56 L 16 144/94 H 93 Room Air 04/21/22 07:51 36.7 C 57 L 16 130/84 95 Room Air 04/21/22 07:13 36.6 C 60 14 137/80 95 Room Air PG Care Time/CCT Total # of Minutes Spent Total Time Spent with Patient: Total time spent is greater than 50% in coordination of care (as documented) at patient's floor/unit and/or counseling patient: Coding Level of Care Code 27092 Inpt Consult Level 2 Diagnoses Unstageable pressure ulcer of buttock L89.300
[2022-04-22] MEDS: PIPERACILLIN/TAZOBACTAM 3.375 GM in DEXTROSE 5% 100 ML IV SCH ×3 (00:22→15:52)
[2022-04-22 09:24] LABS: INR 1.3 (0.9-1.1); Prothrombin Time 14.1 Seconds (9.0-12.0)
[2022-04-22 11:16] LABS: Creatinine Clr Calc Pharmacy 88.1 ml/min; Est GFR (African American) 107.1 ml/min; Est GFR (Non-African American) 92.4 ml/min
[2022-04-22] MEDS ORDERED: fentaNYL citrate 100 MCG/2 ML VIAL ONE (11:45)
[2022-04-22] MEDS ORDERED: BUPIVACAINE/EPINEPHRINE 0.5% MPF 1:200,000 10 ML VIAL ONE (11:55)
[2022-04-22] MEDS ORDERED: fentaNYL citrate 100 MCG/2 ML VIAL IV PRN (12:06)
[2022-04-22] MEDS ORDERED: HYDROmorphone INJ 2 MG/ML SYR/VIAL IV PRN (12:06)
[2022-04-22] MEDS ORDERED: ATROPINE SULFATE 0.1 MG/ML 10ML SYR IV PRN (12:06)
[2022-04-22] MEDS ORDERED: PROMETHAZINE HCL 12.5 MG in SODIUM CHLORIDE 0.9% 50 ML IV PRN (12:06)
[2022-04-22] MEDS ORDERED: ePHEDrine sulfate 50 MG/ML AMP IV PRN (12:06)
[2022-04-22] MEDS ORDERED: ONDANSETRON INJ 2 MG/ML 2 ML VIAL IV PRN (12:06)
--- NOTE | 2022-04-22 12:20 | Surgery Progress Note ---
Date of Service April 22, 2022 Assessment & Plan (1) Unstageable pressure ulcer of buttock: Plan: Patient with pressure ulcer that requires debridement, INR normal today Plan for debridement pressure ulcer of the buttock in OR Risk discussed to include but not limited to bleeding, infection, prolonged wound healing, damage surrounding structures, need for future more extensive surgery, and the risk of anesthesia Admission and Anticipated Discharge Date Admission Date: April 18, 2022 Subjective 66-year-old paraplegic male admitted with pressure wound of his buttock/perineum. INR was <1.5 this morning. Physical Exam Constitutional: WD/WN, vitals as above Skin: no rashes, warm and dry + wound (4 x 2 cm wound gluteal crease with eschar) Results & Data ([facility]) Vital Signs (Past 12 Hours) Vital Signs Temp Pulse Resp BP BP Pulse Ox O2 Del Method 04/22/22 11:19 36.6 C 63 20 159/60 H 95 Room Air 04/22/22 07:46 36.7 C 59 L 16 118/72 94 Room Air PG Care Time/CCT Total # of Minutes Spent Total Time Spent with Patient: Total time spent is greater than 50% in coordination of care (as documented) at patient's floor/unit and/or counseling patient: Coding Level of Care Code 99888 Inpt Consult Level 2 Diagnoses Unstageable pressure ulcer of buttock L89.300
[2022-04-22] MEDS ORDERED: MIDAZOLAM HCL 1 MG/ML 2ML VIAL ONE (12:22)
[2022-04-22] MEDS ORDERED: LIDOCAINE 2% MPF LOCAL 5 ML VIAL INFIL ONE (12:46)
[2022-04-22] MEDS ORDERED: PROPOFOL IV EMULSION 10 MG/ML 20 ML VIAL IV ONE (13:05)
--- NOTE | 2022-04-22 13:08 | Operative Report ---
PG Post Operative Report Pre & Post Diagnosis Operation Date: 04/22/22 12:00 Pre-Op Diagnosis: Perineal Wound Post-Op Diagnosis: Perineal Wound I identified the patient and participated in the time-out.: Yes Procedure Operation Date: 04/22/22 12:00 Actual Procedures p Debridement Perineal Wound - Padilla Marquez DO, ALLISON Surgeon Padilla Marquez DO, ALLISON Cardiac Rehabilitation Program Director Jose Arnold Estimated Blood Loss 10 Findings Consistent with Post-Op Diagnosis Wound debrided down to muscle. Wound measured 4 x 5 x 2 cm in size after debridement. Specimens Perineal pressure ulcer Anesthesia Type MAC Complications none Disposition Accompanied Patient To Recovery: No Disposition: Recovery Room Indications 66-year-old paraplegic male with history of pressure ulcers in his perineum and lower buttock. The wound had healed however noticed some drainage and was seen at the wound clinic and was sent to the emergency department for further evaluation on Thursday. His Coumadin was held and his wound was felt that require surgical debridement. Plan for debridement of buttock/perineal wound. The risks of the procedure were discussed, all questions were answered, and the bhakti ent agreed to proceed with surgery as planned. Description of Procedure The patient was properly identified, consented, and taken to the operating room where he was placed in the prone position. Sedation with monitored anesthesia care was induced. SCDs and a safety belt were placed. Preoperative antibiotics were administered. The patient's buttock and perineum was prepped and draped in the standard sterile fashion. Surgical timeout was performed and all parties were in agreement that this was the correct patient and procedure to be performe d and we continued as planned. Devitalized tissue was debrided using cautery and sharp dissection. This was debrided down to the muscular layer and all unhealthy tissue was removed. We debrided down to healthy and bleeding tissue. The wound was irrigated and hemostasis achieved. The wound was packed with 2 inch Kerlix gauze. The final size of the wound measured 4 cm x 5 cm x 2 cm deep. This represents an excisional debridement, sharp of a stage III pressure ulcer greater than 20 cm. Fluffed Kerlix gauze, an ABD, and disposable knit underwear were placed. The patient was awakened in the operating room and taken to the PACU where he recovered without apparent incident. All sponge, instrument and needle counts were correct at the conclusion of the procedure. The patient tolerated the procedure well. The physician's occupational therapist's assistant was present and scrubbed for the entire the case. He was critical in positioning the patient, prepping and draping, retraction and exposure, debridement of the wound, placement of dressings. I attest to the content of the Intraoperative Record and any orders documented therein. Any exceptions are noted below.
--- NOTE | 2022-04-22 13:50 | Discharge Summary ---
Date of Service April 22, 2022 Admission HPI Per Admitting Provider 66-year-old male with PMH traumatic T12 burst fracture resulting in paraplegia, history of CVA and PAD anticoagulated on Coumadin, s/p right BKA, HTN, dyslipidemia, neurogenic bladder requiring self-catheterization, and other problems listed below who presents to the ED by referral of the wound care center for evaluation of a right buttock wound. Previous history of stage III pressure ulcer of the right buttock treated at the wound care center, discharged in 01/2022. Patient reports that about 4 days ago, when he got out of bed he noted that there was a wet spot on the sheet. Patient was seen at the wound c are center today and was found to have an unstageable ulcer in the right gluteal fold nearing the perineum. Due to significant drainage and foul-smelling odor, patient was referred to the ED for further evaluation. No fevers or chills reported. Patient reports he otherwise has been feeling well recently. Denies chest pain or shortness of breath. No lightheadedness or dizziness. Denies abdominal pain, nausea, vomiting, diarrhea. Patient reports that he self caths 4 times per day. Does know urine has been slightly more cloudy. In the ED, patient is hemodynamically stable, does not appear septic. CT pelvis shows Right perineal/inferior gluteal wound/ulceration. 2.8 cm pocket of fluid projecting over the skin which favors a draining wound. No rim-enhancing fluid collection to suggest abscess. No soft tissue gas. Adjacent infiltration consistent with cellulitis which extends to the base of the scrotum. Patient was given IV Zosyn. Discharge Exam Lying in bed comfortable Constitutional well developed, well nourished and + obese; not ill appearing Eyes PERRL, conjunctivae normal, anicteric sclerae ENMT external ear and nose normal, oropharynx normal Respiratory no respiratory distress Auscultation: + crackles Cardiovascular Rate/Rhythm: regular rate and regular rhythm; not tachycardic Heart Sounds: normal S1 and normal S2; no murmur Extremities: + edema (Bilateral leg edema) Gastrointestinal (Abdomen) Inspection/Auscultation: normal bowel sounds; abdomen not distended Percussion/Palpation: + abdomen tender and abdomen soft Discharge Data Allergies Allergy/AdvReac Type Severity Reaction Status Date / Time No Known Allergies Allergy Verified 04/18/22 13:55 Consultations 12/09/22 16:27 ED Decision to Admit Stat 04/18/22 17:42 Consult General Surgery Routine Procedures Performed Operation Date: 04/22/22 12:00 Actual Procedures p Debridement Perineal Wound(Not Applicable) - Padilla Marquez, DO, FACS Ordered Studies 04/18/22 13:25 CT pelvis w/IV con only Urgent Hospital Course (1) Paraplegia: (2) Unstageable pressure ulcer of buttock: Patient presenting by referral to the wound care center for evaluation of large, unstageable pressure ulcer of the right buttock/gluteal fold Pelvis CT shows Right perineal/inferior gluteal wound/ulceration. 2.8 cm pocket of fluid projecting over the skin which favors a draining wound. No rim- enhancing fluid collection to suggest abscess. No soft tissue gas. Adjacent infiltration consistent with cellulitis which extends to the base of the scrotum. Does not appear septic S/p Zosyn in the ED, continue with and add vancomycin Follow blood and wound cultures General surgery consult for possible surgical debridement Wound care nurse consult Appreciate general surgery input and recommendation for possible I&D on Thursday Patient remained stable and will continue with current antibiotic Wound culture is growing Morganella morganii and urine culture is growing Providencia rettgeri-antibiotic is directed accordingly Vancomycin is stopped Will have I&D tomorrow INR level remains elevated at 3.6 Will give 2.5 mg vitamin K orally today INR remains elevated at 2.1 and will give him 2.5 of vitamin K today INR is not being down as he has been on Zosyn We will check INR tomorrow and possible surgery tomorrow (3) History of CVA (cerebrovascular accident): (4) PAD (peripheral artery disease): Anticoagulated on Coumadin, INR 3.1 Will hold Coumadin tonight due to possible surgical intervention tomorrow Continue statin (5) Neurogenic bladder: Patient self caths 4 times a day, will place Reveles while admitted On chronic nitrofurantoin for UTI suppression DVT prophylaxis SCDs due to possible surgical intervention tomorrow Discharge Plan Discharge Items Reason For Visit: WOUND Follow-up/Referrals: Shira Smith PA-C [Primary Care Provider] - Medications and DC Order Prescriptions: No Action ascorbic acid (vitamin C) 500 mg capsule 1,000 mg PO DAILY aspirin 81 mg tablet,delayed release (DR/EC) 81 mg PO DAILY lisinopril-hydrochlorothiazide 10-12.5 mg tablet 1 tab PO DAILY multivitamin Tablet 1 tab PO DAILY warfarin 5 mg tablet 7.5 mg PO TUTH zinc acetate 50 mg (zinc) Capsule 50 mg PO DAILY nitrofurantoin macrocrystal 100 mg capsule 100 mg PO DAILY atorvastatin 40 mg tablet 40 mg PO DAILY warfarin 5 mg tablet 5 mg PO SUMOWEFRSA calcium carbonate-vitamin D3 600 mg-10 mcg (400 unit) tablet 1 tab PO BID Admission Data Admit Date/Time: 04/18/22 17:46 Attending Provider: Cristian Khan Admit Provider: Priscila Rodas Primary Care Provider: Shira Smith Other Providers: Padilla Marquez ; Priscila Rodas
--- NOTE | 2022-04-22 14:04 | Anesthesiology Progress Note ---
Date of Service April 22, 2022 Anesthesia Post Procedure Vital Signs Vital Signs: Temp Pulse Pulse Pulse Resp BP BP 04/22/22 13:45 53 L 19 111/64 04/22/22 13:30 36.0 C L 54 L 19 113/65 04/22/22 13:20 58 L 22 106/68 04/22/22 13:12 36.1 C L 63 20 108/68 04/22/22 11:19 36.6 C 63 20 159/60 H 04/22/22 07:46 36.7 C 59 L 16 118/72 04/21/22 21:31 36.6 C 60 16 123/71 04/21/22 15:01 36.8 C 61 18 107/70 Pulse Ox O2 Del Method O2 Flow Rate 04/22/22 13:45 94 Room Air 04/22/22 13:30 94 Room Air 04/22/22 13:20 94 Room Air 04/22/22 13:12 98 Nasal Cannula 3 04/22/22 11:19 95 Room Air 04/22/22 07:46 94 Room Air 04/21/22 21:31 95 Room Air 04/21/22 15:01 95 Room Air Pain Intensity Buttock: Pain Intensity: 1 Transfer of Care Handoff Completed per policy Notes Mental Status: alert / awake / arousable and participated in evaluation Patient Amnestic to Procedure: Yes Nausea / Vomiting: adequately controlled Pain: adequately controlled Airway Patency, RR, SpO2: stable & adequate BP & HR: stable & adequate Hydration State: stable & adequate Anesthetic Complications: no major complications apparent
[2022-04-22] MEDS ORDERED: MoRPHine SULFATE 2 MG/ML CARP IV PRN (14:05)
[2022-04-22] MEDS ORDERED: oxyCODONE HCL IR 5 MG TAB (IMMEDIATE RELEASE) PO PRN (14:05)
[2022-04-22] MEDS: ATORVASTATIN 40 MG TAB PO SCH (15:11)
[2022-04-22] MEDS: ASPIRIN 81 MG ECTAB PO SCH (15:11)
[2022-04-22] MEDS: MULTIVITAMIN TAB PO SCH (15:11)
[2022-04-22] MEDS: LISINOPRIL/HCTZ 10/12.5MG TAB PO SCH (15:11)
[2022-04-23] MEDS: PIPERACILLIN/TAZOBACTAM 3.375 GM in DEXTROSE 5% 100 ML IV SCH ×3 (00:32→16:00)
[2022-04-23] MEDS: MULTIVITAMIN TAB PO SCH (10:26)
[2022-04-23] MEDS: ASPIRIN 81 MG ECTAB PO SCH (10:26)
[2022-04-23] MEDS: ATORVASTATIN 40 MG TAB PO SCH (10:26)
[2022-04-23] MEDS: LISINOPRIL/HCTZ 10/12.5MG TAB PO SCH (10:26)
--- NOTE | 2022-04-23 12:50 | Hospitalist Progress Note ---
Date of Service April 23, 2022 Assessment & Plan (1) Paraplegia: (2) Unstageable pressure ulcer of buttock: (3) History of CVA (cerebrovascular accident): (4) PAD (peripheral artery disease): (5) Neurogenic bladder: Plan: per Dr. Khan's notes with addendum: (1) Paraplegia: (2) Unstageable pressure ulcer of buttock: Plan: Patient presenting by referral to the wound care center for evaluation of large, unstageable pressure ulcer of the right buttock/gluteal fold Pelvis CT showsRight perineal/inferior gluteal wound/ulceration. 2.8 cm pocket of fluid projecting over the skin which favors a draining wound. No rim- enhancing fluid collection to suggest abscess. No soft tissue gas. Adjacent infiltration consistent with cellulitis which extends to the base of the scrotum. Does not appear septic S/p Zosyn in the ED, continue with and add vancomycin Wound culture from 04/18 is growing Morganella morganii urine culture is growing Providencia rettgeri Status post I&D 04/22 Stable overall after I&D Continue IV Zosyn ID consulted Daily wound care (3) History of CVA (cerebrovascular accident): (4) PAD (peripheral artery disease): Plan: Anticoagulated on Coumadin Given vitamin K, Coumadin held for surgery INR 1.3 Resume Coumadin once okay with general surgery (5) Neurogenic bladder: Plan: Patient self caths 4 times a day Reveles catheter placed while admitted On chronic nitrofurantoin for UTI suppression DVT prophylaxis SCDs Coumadin on hold Admission and Anticipated Discharge Date Admission Date: April 18, 2022 Subjective Follow-up for perineal abscess, etc. Seen resting in bed, comfortable, not in distress Watching TV In good spirits States he feels fine overall Denies pain over the surgical site No fevers or chills no chest pain, dyspnea, palpitations, dizziness No other symptoms Review of Systems Review of Systems: all noted and negative except for above Physical Exam Physical Exam: General- oriented x 3, not in distress, speaks in sentences with no effort or accessory muscle use Eyes- anicteric Neck- no JVD Lungs- clear breath sounds bilaterally, no rales/wheezes Heart- normal rate, regular rhythm; no murmurs Abdomen- normal bowel sounds, nondistended, soft, nontender Buttock wound-surgical wound: Packing in place,(+) serosanguineous drainage on the dressing Differential: No bleeding or discharge Extremities- LLE no pretibial edema, no calf tenderness s/p radiation of right lower leg Neuro- alert, oriented x 3; no gross focal neurologic deficits Skin- warm & dry Results & Data Results & Data ([facility]) Vital Signs (Past 12 Hours) Vital Signs Temp Pulse Resp BP Pulse Ox O2 Del Method 04/23/22 11:32 95 Room Air 04/23/22 11:13 36.7 C 72 16 104/67 92 Room Air 04/23/22 10:24 73 119/70 04/23/22 07:44 37.0 C 66 16 128/80 95 Room Air 04/23/22 03:01 36.4 C L 70 16 115/75 93 Room Air all noted and reviewed including below
--- NOTE | 2022-04-23 13:13 | Surgery Progress Note ---
Date of Service April 23, 2022 Assessment & Plan (1) Open wound of perineum: Plan: POD#1 I&D of perineal wounds Vitals stable, no labs today Infectious disease consulted for abx guidance Asked for wound care's assistance with dressing recommendations thereafter, if amenable to vac vs. other dressings We are okay with resuming coumadin tonight F/u with wound center as outpatient unless going to facility upon dispo We will sign off, please call with any questions/concerns Admission and Anticipated Discharge Date Admission Date: April 18, 2022 Subjective * Patient is feeling well. No complaints from his wounds after surgery. Says nursing changed dressing this AM. Discussing with me what he thinks his plans will be upon dispo from the hospital. Physical Exam Physical Exam: awake/alert, no distress, lying in bed eating breakfast Results & Data ([facility]) Vital Signs (Past 12 Hours) Vital Signs Temp Pulse Resp BP Pulse Ox O2 Del Method 04/23/22 11:32 95 Room Air 04/23/22 11:13 36.7 C 72 16 104/67 92 Room Air 04/23/22 10:24 73 119/70 04/23/22 07:44 37.0 C 66 16 128/80 95 Room Air 04/23/22 03:01 36.4 C L 70 16 115/75 93 Room Air PG Care Time/CCT Total # of Minutes Spent Total Time Spent with Patient: Total time spent is greater than 50% in coordination of care (as documented) at patient's floor/unit and/or counseling patient: Coding Level of Care Code None Diagnoses Open wound of perineum
[2022-04-24] MEDS: PIPERACILLIN/TAZOBACTAM 3.375 GM in DEXTROSE 5% 100 ML IV SCH ×4 (00:07→23:23)
[2022-04-24 06:32] LABS: Basophils # (auto) 0.03 K/uL (0-0.2); Basophils % (auto) 0.3 %; Hematocrit (blood only) 42.1 % (40.1-51.0); Hemoglobin 14.1 g/dl (14.0-18.0); Immature Granulocytes # (auto) 0.03 K/uL (0.00-0.02); Immature Granulocytes % (auto) 0.3 %; Lymphocytes # (auto) 1.78 K/uL (1.2-3.4); Mean Corpuscular Hemoglobin 31.5 pg (25.0-34.0); Mean Corpuscular Hgb Conc 33.5 g/dL (32.0-36.0); Mean Corpuscular Volume 94.2 fL (80.0-100.0); Mean Platelet Volume 9.8 fL (9.4-12.4); Monocytes % (auto) 9.1 %; Neutrophils # (auto) 6.77 K/uL (1.4-6.5); Neutrophils % (auto) 68.3 %; Platelet Count 298 K/uL (130-400); RDW Coefficient of Variation 13.9 % (11.5-14.5); RDW Standard Deviation 48.1 fL (36.4-46.3); Red Blood Count 4.47 M/uL (4.63-6.08); White Blood Count 9.91 K/ul (4.8-10.8)
[2022-04-24 06:42] LABS: INR 1.1 (0.9-1.1); Prothrombin Time 11.2 Seconds (9.0-12.0)
[2022-04-24 07:13] LABS: Calcium 8.9 mg/dl (8.5-10.1); Creatinine Clr Calc Pharmacy 73.4 ml/min; Est GFR (African American) 94.4 ml/min; Est GFR (Non-African American) 81.5 ml/min; Potassium 4.2 mmol/L (3.5-5.1)
[2022-04-24] MEDS: ASPIRIN 81 MG ECTAB PO SCH (08:11)
[2022-04-24] MEDS: ATORVASTATIN 40 MG TAB PO SCH (08:11)
[2022-04-24] MEDS: MULTIVITAMIN TAB PO SCH (08:11)
--- NOTE | 2022-04-24 13:53 | Hospitalist Progress Note ---
Date of Service April 24, 2022 Assessment & Plan (1) Paraplegia: (2) Unstageable pressure ulcer of buttock: (3) History of CVA (cerebrovascular accident): (4) PAD (peripheral artery disease): (5) Neurogenic bladder: Plan: per Dr. Khan's notes with addendum: (1) Paraplegia: (2) Unstageable pressure ulcer of buttock: Plan: Patient presenting by referral to the wound care center for evaluation of large, unstageable pressure ulcer of the right buttock/gluteal fold Pelvis CT showsRight perineal/inferior gluteal wound/ulceration. 2.8 cm pocket of fluid projecting over the skin which favors a draining wound. No rim- enhancing fluid collection to suggest abscess. No soft tissue gas. Adjacent infiltration consistent with cellulitis which extends to the base of the scrotum. Does not appear septic S/p Zosyn in the ED, continue with and add vancomycin Wound culture from 04/18 is growing Morganella morganii urine culture is growing Providencia rettgeri Status post I&D 04/22 Stable overall after I&D Afebrile Continue IV Zosyn ID consulted, Awaiting recommendations Resume Coumadin per general surgery Daily wound care (3) History of CVA (cerebrovascular accident): (4) PAD (peripheral artery disease): Plan: Anticoagulated on Coumadin Given vitamin K, Coumadin held for surgery INR 1.1 Resume Coumadin , Okay with general surgery now (5) Neurogenic bladder: Plan: Patient self caths 4 times a day Reveles catheter placed while admitted On chronic nitrofurantoin for UTI suppression DVT prophylaxis SCDs Coumadin Admission and Anticipated Discharge Date Admission Date: April 18, 2022 Subjective Follow-up for perineal abscess, etc. Resting in bed, comfortable, not in distress States he feels fine overall Denies pain over the surgical area No shortness of breath, chest pain, dizziness, nausea vomiting No fevers or chills No other symptoms Review of Systems Review of Systems: all noted and negative except for above Physical Exam Physical Exam: General- oriented x 3, not in distress, speaks in sentences with no effort or accessory muscle use Eyes- anicteric Neck- no JVD Lungs- clear breath sounds bilaterally, No crackles or wheezing Heart- normal rate, regular rhythm; no murmurs Abdomen- normal bowel sounds, nondistended, soft, nontender Buttock area-dressing in place, no bleeding or discharge Extremities- no pretibial edema, no calf tenderness Status post right lower extremity amputation Neuro- alert, oriented x 3; no gross focal neurologic deficits Skin- warm & dry Results & Data Results & Data ([facility]) Vital Signs (Past 12 Hours) Vital Signs Temp Pulse Resp BP Pulse Ox O2 Del Method 04/24/22 07:11 36.8 C 62 18 114/69 92 Room Air all noted and reviewed including below
[2022-04-24] MEDS: WARFARIN SOD 7.5 MG TAB PO SCH (17:22)
[2022-04-25 07:23] LABS: INR 1.1 (0.9-1.1); Prothrombin Time 11.3 Seconds (9.0-12.0)
[2022-04-25] MEDS: PIPERACILLIN/TAZOBACTAM 3.375 GM in DEXTROSE 5% 100 ML IV SCH (08:29)
[2022-04-25] MEDS: ASPIRIN 81 MG ECTAB PO SCH (08:29)
[2022-04-25] MEDS: ATORVASTATIN 40 MG TAB PO SCH (08:29)
[2022-04-25] MEDS: MULTIVITAMIN TAB PO SCH (08:29)
[2022-04-25] MEDS ORDERED: VANCOMYCIN CONSULT ACTIVE PRN (09:26)
[2022-04-25] MEDS ORDERED: VANCOMYCIN HCL 1,750 MG in SODIUM CHLORIDE 0.9% 500 ML IV ONE (10:00)
[2022-04-25] MEDS: CEFEPIME 2,000 MG in SYRINGE 0 ML IV SCH ×2 (10:27→16:44)
[2022-04-25 12:14] LABS: Creatinine Clr Calc Pharmacy 90.3 ml/min; Est GFR (African American) 108.3 ml/min; Est GFR (Non-African American) 93.4 ml/min
[2022-04-25] MEDS ORDERED: VANCOMYCIN HCL 1,000 MG in SODIUM CHLORIDE 0.9% 500 ML IV SCH (14:00)
[2022-04-25] MEDS: metroNIDAZOLE 500 MG TAB PO SCH ×2 (14:33→21:14)
--- NOTE | 2022-04-25 14:49 | Pharmacy Report ---
Pharmacy PK ABX Note - Date of Service April 25, 2022 - Assessment and Plan Assessment 66 year old M receiving vancomycin/cefepime/metronidazole for treatment of pressure ulcer/cellulitis. Pertinent microbiologic data includes: Buttock culture 04/21: corynebacterium, 04/18 buttock: morganella morganii/bacteroides, urine 04/18: providencia rettgeri. ID consulted for recommendations. Patient was previously treated with vancomycin 04/18-04/20. Reloaded today and will begin maintenance. Plan Vancomycin * Loading dose: 1750 mg IV x 1 * Maintenance dose: 750 mg IV every 12 hours * Regimen is predicted to achieve target AUC/SIOBHAN of 400-600 mg/L.hr * Random level to be ordered if continued greater than 48 hours. Pharmacy will continue to follow and will adjust dose/frequency as necessary. Thank you. Pharmacy has transitioned to AUC monitoring for vancomycin. AUC/SIOBHAN is the preferred PK/PD target and is associated with decreased risk of nephrotoxicity compared to traditional trough targets.
[2022-04-25] MEDS: WARFARIN SOD 7.5 MG TAB PO SCH (16:43)
--- NOTE | 2022-04-25 17:26 | Hospitalist Progress Note ---
Date of Service April 25, 2022 Assessment & Plan (1) Paraplegia: (2) Unstageable pressure ulcer of buttock: (3) History of CVA (cerebrovascular accident): (4) PAD (peripheral artery disease): (5) Neurogenic bladder: Plan: per Dr. Khan's notes with addendum: (1) Paraplegia: (2) Unstageable pressure ulcer of buttock: Plan: Patient presenting by referral to the wound care center for evaluation of large, unstageable pressure ulcer of the right buttock/gluteal fold Pelvis CT showsRight perineal/inferior gluteal wound/ulceration. 2.8 cm pocket of fluid projecting over the skin which favors a draining wound. No rim- enhancing fluid collection to suggest abscess. No soft tissue gas. Adjacent infiltration consistent with cellulitis which extends to the base of the scrotum. Does not appear septic S/p Zosyn in the ED, continue with and add vancomycin Wound culture from 04/18 is growing Morganella morganii urine culture is growing Providencia rettgeri Status post I&D 04/22 Stable overall after I&D Afebrile ID consulted, discussed with Dr. Tapia Confirm general surgery-they do not feel patient has osteomyelitis clinically ID recommending vancomycin plus cefepime plus Flagyl x1 more week, day #1 Daily wound care (3) History of CVA (cerebrovascular accident): (4) PAD (peripheral artery disease): Plan: Anticoagulated on Coumadin Given vitamin K, Coumadin held for surgery INR 1.1 Resume Coumadin , Okay with general surgery now Continue Coumadin 7.5 mg p.o. daily INR tomorrow (5) Neurogenic bladder: Plan: Patient self caths 4 times a day Reveles catheter placed while admitted On chronic nitrofurantoin for UTI suppression DVT prophylaxis SCDs Coumadin plan of care discussed with patient in detail and at length all questions answered he is understanding, agreeable, comfortable with the plan of care Admission and Anticipated Discharge Date Admission Date: April 18, 2022 Subjective Follow-up for perineal abscess, status post debridement, etc. Seen resting in bed, watching TV, comfortable States he feels fine overall No pain over the surgical site Denies fevers chills, nausea vomiting, abdominal pain, chest pain, shortness of breath No other symptoms Review of Systems Review of Systems: all noted and negative except for above Physical Exam Physical Exam: General- oriented x 3, not in distress, speaks in sentences with no effort or accessory muscle use Eyes- anicteric Neck- no JVD Lungs- clear breath sounds bilaterally, crackles or wheezing Heart- normal rate, regular rhythm; no murmurs Abdomen- normal bowel sounds, nondistended, soft, tenderness Extremities- no pretibial edema, no calf tenderness Neuro- alert, oriented x 3; no gross focal neurologic deficits Skin- warm & dry Results & Data Results & Data ([facility]) Vital Signs (Past 12 Hours) Vital Signs Temp Pulse Resp BP Pulse Ox O2 Del Method 04/25/22 14:52 36.6 C 61 16 127/76 92 Room Air 04/25/22 07:23 36.5 C 61 16 127/77 94 Room Air all noted and reviewed including below
[2022-04-25] MEDS: VANCOMYCIN HCL 750 MG in SODIUM CHLORIDE 0.9% 250 ML IV SCH (21:14)
[2022-04-26] MEDS: CEFEPIME 2,000 MG in SYRINGE 0 ML IV SCH ×3 (01:53→17:03)
[2022-04-26 08:03] LABS: INR 1.2 (0.9-1.1); Prothrombin Time 12.2 Seconds (9.0-12.0)
[2022-04-26] MEDS: metroNIDAZOLE 500 MG TAB PO SCH ×3 (08:15→21:40)
[2022-04-26] MEDS: ATORVASTATIN 40 MG TAB PO SCH (08:15)
[2022-04-26] MEDS: ADVANCED PROBIOTIC 1250 MG CAPSULE PO SCH (08:15)
[2022-04-26] MEDS: ASPIRIN 81 MG ECTAB PO SCH (08:15)
[2022-04-26] MEDS: MULTIVITAMIN TAB PO SCH (08:16)
[2022-04-26 08:34] LABS: Creatinine Clr Calc Pharmacy 117.4 ml/min; Est GFR (African American) 120.6 ml/min
[2022-04-26] MEDS: VANCOMYCIN HCL 750 MG in SODIUM CHLORIDE 0.9% 250 ML IV SCH (09:41)
--- NOTE | 2022-04-26 14:50 | Hospitalist Progress Note ---
Date of Service April 26, 2022 Assessment & Plan (1) Paraplegia: (2) Unstageable pressure ulcer of buttock: (3) History of CVA (cerebrovascular accident): (4) PAD (peripheral artery disease): (5) Neurogenic bladder: Plan: per Dr. Khan's notes with addendum: (1) Paraplegia: (2) Unstageable pressure ulcer of buttock: Plan: Patient presenting by referral to the wound care center for evaluation of large, unstageable pressure ulcer of the right buttock/gluteal fold Pelvis CT showsRight perineal/inferior gluteal wound/ulceration. 2.8 cm pocket of fluid projecting over the skin which favors a draining wound. No rim- enhancing fluid collection to suggest abscess. No soft tissue gas. Adjacent infiltration consistent with cellulitis which extends to the base of the scrotum. Does not appear septic S/p Zosyn in the ED, continue with and add vancomycin Wound culture from 04/18 is growing Morganella morganii urine culture is growing Providencia rettgeri Status post I&D 04/22 Stable overall after I&D Afebrile ID consulted, discussed with Dr. Tapia Confirmed general surgery-they do not feel patient has osteomyelitis clinically ID recommending vancomycin plus cefepime plus Flagyl x1 more week, day #2 Daily wound care (3) History of CVA (cerebrovascular accident): (4) PAD (peripheral artery disease): Plan: Anticoagulated on Coumadin Given vitamin K, Coumadin held for surgery INR 1.2 Continue Coumadin 7.5 mg p.o. daily INR tomorrow (5) Neurogenic bladder: Plan: Patient self caths 4 times a day Reveles catheter placed while admitted On chronic nitrofurantoin for UTI suppression DVT prophylaxis SCDs Coumadin plan of care discussed with patient in detail and at length all questions answered he is understanding, agreeable, comfortable with the plan of care Admission and Anticipated Discharge Date Admission Date: April 18, 2022 Subjective ff up for perineal abscess, etc. Seen sleeping but easily awakened In good spirits, comfortable States he feels fine overall Denies pain over the buttock area No shortness of breath no chest pain, palpitations, dizziness No Other symptoms Review of Systems Review of Systems: all noted and negative except for above Physical Exam Physical Exam: General- oriented x 3, not in distress, speaks in sentences with no effort or accessory muscle use Eyes- anicteric Neck- no JVD Lungs- clear breath sounds bilaterally, no crackles or wheezing Heart- normal rate, regular rhythm; no murmurs Abdomen- normal bowel sounds, nondistended, soft, no tenderness Extremities- no pretibial edema, no calf tenderness Neuro- alert, oriented x 3; no gross focal neurologic deficits Skin- warm & dry Results & Data Results & Data ([facility]) Vital Signs (Past 12 Hours) Vital Signs Temp Pulse Resp BP Pulse Ox O2 Del Method 04/26/22 14:43 36.7 C 63 16 125/74 95 Room Air 04/26/22 07:17 36.7 C 60 16 141/81 H 94 Room Air all noted and reviewed including below
[2022-04-26] MEDS: WARFARIN SOD 7.5 MG TAB PO SCH (17:03)
[2022-04-26] MEDS: VANCOMYCIN HCL 1,000 MG in SODIUM CHLORIDE 0.9% 250 ML IV SCH (22:47)
[2022-04-27] MEDS: CEFEPIME 2,000 MG in SYRINGE 0 ML IV SCH ×3 (02:25→18:40)
[2022-04-27 07:26] LABS: INR 1.2 (0.9-1.1); Prothrombin Time 13.1 Seconds (9.0-12.0)
[2022-04-27 07:31] LABS: Creatinine Clr Calc Pharmacy 119.4 ml/min; Est GFR (African American) 121.4 ml/min; Est GFR (Non-African American) 104.8 ml/min
[2022-04-27] MEDS: ATORVASTATIN 40 MG TAB PO SCH (09:40)
[2022-04-27] MEDS: ADVANCED PROBIOTIC 1250 MG CAPSULE PO SCH (09:40)
[2022-04-27] MEDS: ASPIRIN 81 MG ECTAB PO SCH (09:40)
[2022-04-27] MEDS: MULTIVITAMIN TAB PO SCH (09:40)
[2022-04-27] MEDS: metroNIDAZOLE 500 MG TAB PO SCH ×3 (09:40→21:26)
--- NOTE | 2022-04-27 11:30 | Pharmacy Report ---
Pharmacy PK ABX Note - Date of Service April 27, 2022 - Assessment and Plan Assessment * 66 year old M receiving vancomycin/cefepime/metronidazole for treatment of pressure ulcer/cellulitis * Pertinent microbiologic data includes: * 04/18 urine: Providencia rettgeri * 04/18 buttock: Morganella morganii/Bacteroides * 04/21 buttock: Corynebacterium * ID consulted. Per hospitalist progress note, supported above regimen Plan Vancomycin * Maintenance dose: 1000 mg IV every 12 hours * Trough level of 12.2 mcg/mL today * Regimen is predicted to achieve target AUC/SIOBHAN of 400-600 mg/L.hr * Random level to be ordered in another 2-3 days Pharmacy will continue to follow and will adjust dose/frequency as necessary. Thank you. Pharmacy has transitioned to AUC monitoring for vancomycin. AUC/SIOBHAN is the preferred PK/PD target and is associated with decreased risk of nephrotoxicity compared to traditional trough targets.
[2022-04-27] MEDS: VANCOMYCIN HCL 1,000 MG in SODIUM CHLORIDE 0.9% 250 ML IV SCH ×2 (12:40→21:26)
[2022-04-27] MEDS: WARFARIN SOD 7.5 MG TAB PO SCH (16:01)
[2022-04-27] MEDS ORDERED: SODIUM CHLORIDE 0.9% 1000ML 500 ML IV ONE (17:01)
--- NOTE | 2022-04-27 17:04 | Hospitalist Progress Note ---
Date of Service April 27, 2022 Assessment & Plan (1) Paraplegia: (2) Unstageable pressure ulcer of buttock: (3) History of CVA (cerebrovascular accident): (4) PAD (peripheral artery disease): (5) Neurogenic bladder: Plan: per Dr. Khan's notes with addendum: (1) Paraplegia: (2) Unstageable pressure ulcer of buttock: Plan: Patient presenting by referral to the wound care center for evaluation of large, unstageable pressure ulcer of the right buttock/gluteal fold Pelvis CT showsRight perineal/inferior gluteal wound/ulceration. 2.8 cm pocket of fluid projecting over the skin which favors a draining wound. No rim- enhancing fluid collection to suggest abscess. No soft tissue gas. Adjacent infiltration consistent with cellulitis which extends to the base of the scrotum. Does not appear septic S/p Zosyn in the ED, continue with and add vancomycin Wound culture from 04/18 is growing Morganella morganii urine culture is growing Providencia rettgeri Status post I&D 04/22 ID consulted, discussed with Dr. Tapia Confirmed general surgery-they do not feel patient has osteomyelitis clinically ID recommending vancomycin plus cefepime plus Flagyl x1 more week, day 4 Daily wound care -- BP 88/65 500cc IV NSS bolus ordered NSS 125cc/hr started (3) History of CVA (cerebrovascular accident): (4) PAD (peripheral artery disease): Plan: Anticoagulated on Coumadin Given vitamin K, Coumadin held for surgery INR 1.2 coumadin 10mg po today INR tomorrow (5) Neurogenic bladder: Plan: Patient self caths 4 times a day Reveles catheter placed while admitted On chronic nitrofurantoin for UTI suppression DVT prophylaxis SCDs Coumadin plan of care discussed with patient in detail and at length all questions answered he is understanding, agreeable, comfortable with the plan of care Admission and Anticipated Discharge Date Admission Date: April 18, 2022 Subjective ff up for perineal abscess, etc seen resting in bed, comfortable states he was not able to sleep well due to IV site placement otherwise feels fine overall no new symptoms Review of Systems Review of Systems: all noted and negative except for above Physical Exam Physical Exam: General- oriented x 3, not in distress, speaks in sentences with no effort or accessory muscle use Eyes- anicteric Neck- no JVD Lungs- clear BS bilaterally, no rales/wheezes Heart- normal rate, regular rhythm; no murmurs Abdomen- normal bowel sounds, nondistended, soft, no tenderness Extremities- no pretibial edema, no calf tenderness Neuro- alert, oriented x 3; no gross focal neurologic deficits Skin- warm & dry Results & Data Results & Data ([facility]) Vital Signs (Past 12 Hours) Vital Signs Temp Pulse Resp BP Pulse Ox O2 Del Method 04/27/22 14:51 36.7 C 70 18 130/76 97 Room Air 04/27/22 07:22 36.7 C 56 L 18 129/69 95 Room Air all noted and reviewed including below
[2022-04-27] MEDS ORDERED: WARFARIN SOD 2.5 MG TAB PO STA (17:06)
[2022-04-27] MEDS: SODIUM CHLORIDE 0.9% 1000ML 1,000 ML IV SCH ×2 (18:56→22:39)
[2022-04-28] MEDS: CEFEPIME 2,000 MG in SYRINGE 0 ML IV SCH ×3 (02:39→17:09)
[2022-04-28] MEDS: SODIUM CHLORIDE 0.9% 1000ML 1,000 ML IV SCH ×2 (06:21→15:43)
[2022-04-28 07:39] LABS: INR 1.4 (0.9-1.1); Prothrombin Time 15.1 Seconds (9.0-12.0)
[2022-04-28 07:54] LABS: Est GFR (African American) 126.9 ml/min; Est GFR (Non-African American) 109.5 ml/min
[2022-04-28] MEDS: metroNIDAZOLE 500 MG TAB PO SCH ×3 (09:23→21:10)
[2022-04-28] MEDS: ADVANCED PROBIOTIC 1250 MG CAPSULE PO SCH (09:23)
[2022-04-28] MEDS: MULTIVITAMIN TAB PO SCH (09:23)
[2022-04-28] MEDS: VANCOMYCIN HCL 1,250 MG in SODIUM CHLORIDE 0.9% 250 ML IV SCH ×2 (09:23→21:33)
[2022-04-28] MEDS: ASPIRIN 81 MG ECTAB PO SCH (09:23)
[2022-04-28] MEDS: ATORVASTATIN 40 MG TAB PO SCH (09:23)
[2022-04-28] MEDS ORDERED: WARFARIN SOD 10 MG TAB PO SCH (16:00)
--- NOTE | 2022-04-28 16:59 | Hospitalist Progress Note ---
Date of Service April 28, 2022 Assessment & Plan (1) Paraplegia: (2) Unstageable pressure ulcer of buttock: (3) History of CVA (cerebrovascular accident): (4) PAD (peripheral artery disease): (5) Neurogenic bladder: Plan: per Dr. Khan's notes with addendum: (1) Paraplegia: (2) Unstageable pressure ulcer of buttock: Plan: Patient presenting by referral to the wound care center for evaluation of large, unstageable pressure ulcer of the right buttock/gluteal fold Pelvis CT showsRight perineal/inferior gluteal wound/ulceration. 2.8 cm pocket of fluid projecting over the skin which favors a draining wound. No rim- enhancing fluid collection to suggest abscess. No soft tissue gas. Adjacent infiltration consistent with cellulitis which extends to the base of the scrotum. Does not appear septic S/p Zosyn in the ED, continue with and add vancomycin Wound culture from 04/18 is growing Morganella morganii urine culture is growing Providencia rettgeri Status post I&D 04/22 ID consulted, discussed with Dr. Tapia Confirmed general surgery-they do not feel patient has osteomyelitis clinically ID recommending vancomycin plus cefepime plus Flagyl x1 more week, day 4 Daily wound care -- BP improved (3) History of CVA (cerebrovascular accident): (4) PAD (peripheral artery disease): Plan: Anticoagulated on Coumadin Given vitamin K, Coumadin held for surgery INR 1.4 coumadin 10mg po today INR tomorrow (5) Neurogenic bladder: Plan: Patient self caths 4 times a day Reveles catheter placed while admitted On chronic nitrofurantoin for UTI suppression DVT prophylaxis SCDs Coumadin Disposition discussed with patient re: SNF to ensure appropriate daily wound care, he is agreeable to explore this option plan of care discussed with patient in detail and at length all questions answered he is understanding, agreeable, comfortable with the plan of care Admission and Anticipated Discharge Date Admission Date: April 18, 2022 Subjective Follow-up for perineal abscess, etc. Seen resting in bed, comfortable, not in distress, in good spirits States he feels fine overall Denies pain over the buttock area No abdominal pain, diarrhea, tolerating IV antibiotics well No other symptoms Review of Systems Review of Systems: all noted and negative except for above Physical Exam Physical Exam: General- oriented x 3, not in distress, speaks in sentences with no effort or accessory muscle use Eyes- anicteric Neck- no JVD Lungs- clear breath sounds bilaterally, no rales Heart- normal rate, regular rhythm; no murmurs Abdomen- normal bowel sounds, nondistended, soft, nontender Buttocks- attempted to examine but patient just had a BM Extremities- no pretibial edema, no calf tenderness s/p amputation RLE Neuro- alert, oriented x 3; no gross focal neurologic deficits Skin- warm & dry Results & Data Results & Data ([facility]) Vital Signs (Past 12 Hours) Vital Signs Temp Pulse Resp BP Pulse Ox O2 Del Method 04/28/22 14:51 36.6 C 55 L 18 109/61 96 Room Air 04/28/22 07:21 36.4 C L 60 16 112/70 96 Room Air
[2022-04-29] MEDS: CEFEPIME 2,000 MG in SYRINGE 0 ML IV SCH ×2 (01:37→09:18)
[2022-04-29] MEDS: SODIUM CHLORIDE 0.9% 1000ML 1,000 ML IV SCH (06:30)
[2022-04-29] MEDS: metroNIDAZOLE 500 MG TAB PO SCH ×2 (08:38→14:03)
[2022-04-29] MEDS: ATORVASTATIN 40 MG TAB PO SCH (08:38)
[2022-04-29] MEDS: ADVANCED PROBIOTIC 1250 MG CAPSULE PO SCH (08:38)
[2022-04-29] MEDS: ASPIRIN 81 MG ECTAB PO SCH (08:38)
[2022-04-29] MEDS: MULTIVITAMIN TAB PO SCH (08:39)
[2022-04-29 08:50] LABS: Basophils # (auto) 0.02 K/uL (0-0.2); Basophils % (auto) 0.3 %; Eosinophils # (auto) 0.39 K/uL (0-0.50); Eosinophils % (auto) 5.1 %; Hematocrit (blood only) 41.1 % (40.1-51.0); Hemoglobin 13.9 g/dl (14.0-18.0); Immature Granulocytes # (auto) 0.02 K/uL (0.00-0.02); Immature Granulocytes % (auto) 0.3 %; Lymphocytes # (auto) 1.43 K/uL (1.2-3.4); Lymphocytes % (auto) 18.7 %; Mean Corpuscular Hemoglobin 31.7 pg (25.0-34.0); Mean Corpuscular Hgb Conc 33.8 g/dL (32.0-36.0); Mean Corpuscular Volume 93.8 fL (80.0-100.0); Monocytes # (auto) 0.73 K/uL (0.24-0.82); Monocytes % (auto) 9.5 %; Neutrophils # (auto) 5.06 K/uL (1.4-6.5); Neutrophils % (auto) 66.1 %; Platelet Count 257 K/uL (130-400); RDW Coefficient of Variation 14.2 % (11.5-14.5); RDW Standard Deviation 48.1 fL (36.4-46.3); Red Blood Count 4.38 M/uL (4.63-6.08); White Blood Count 7.65 K/ul (4.8-10.8)
[2022-04-29 08:57] LABS: INR 1.8 (0.9-1.1); Prothrombin Time 18.8 Seconds (9.0-12.0)
[2022-04-29 09:19] LABS: BUN Creatinine Ratio 19.7 (10-20); Calcium 8.8 mg/dl (8.5-10.1); Creatinine Clr Calc Pharmacy 115.5 ml/min; Est GFR (African American) 119.8 ml/min; Est GFR (Non-African American) 103.3 ml/min; Potassium 3.8 mmol/L (3.5-5.1)
[2022-04-29] MEDS: VANCOMYCIN HCL 1,250 MG in SODIUM CHLORIDE 0.9% 250 ML IV SCH (10:30)
--- NOTE | 2022-04-29 10:34 | Pharmacy Report ---
Pharmacy PK ABX Note - Date of Service April 29, 2022 - Assessment and Plan Assessment * 66 year old M receiving vancomycin/cefepime/metronidazole for treatment of pressure ulcer/cellulitis * Pertinent microbiologic data includes: * 04/18 urine: Providencia rettgeri * 04/18 buttock: Morganella morganii/Bacteroides * 04/21 buttock: Corynebacterium * ID consulted. Per hospitalist progress note, supported above regimen * Today is day 5 of Vancomycin therapy. Therapy is to continue till 05/03/22 per provider. Plan Vancomycin * Vancomycin dosing was increased to 1250 mg IV q12h yesterday. * Patient received two doses yesterday. Level is not at steady state. * A random Vancomycin level obtained today = 16.8 mcg/ml. This level is therapeutic. * Current regimen is predicted to achieve target AUC/SIOBHAN of 400-600 mg/L.hr. Predicted AUC at steady state: 572 mg/L.hr * Continue Vancomycin 1250 mg IV every 12 hours * Repeat random level ordered for: 05/02/22 with AM labs Pharmacy will continue to follow and will adjust dose/frequency as necessary. Thank you. Pharmacy has transitioned to AUC monitoring for vancomycin. AUC/SIOBHAN is the preferred PK/PD target and is associated with decreased risk of nephrotoxicity compared to traditional trough targets.
--- NOTE | 2022-04-29 13:01 | Hospitalist Progress Note ---
Date of Service April 29, 2022 Assessment & Plan (1) Paraplegia: (2) Unstageable pressure ulcer of buttock: (3) History of CVA (cerebrovascular accident): (4) PAD (peripheral artery disease): (5) Neurogenic bladder: Plan: per Dr. Khan's notes with addendum: (1) Paraplegia: (2) Unstageable pressure ulcer of buttock: Plan: Patient presenting by referral to the wound care center for evaluation of large, unstageable pressure ulcer of the right buttock/gluteal fold Pelvis CT showsRight perineal/inferior gluteal wound/ulceration. 2.8 cm pocket of fluid projecting over the skin which favors a draining wound. No rim- enhancing fluid collection to suggest abscess. No soft tissue gas. Adjacent infiltration consistent with cellulitis which extends to the base of the scrotum. Does not appear septic S/p Zosyn in the ED, continue with and add vancomycin Wound culture from 04/18 is growing Morganella morganii urine culture is growing Providencia rettgeri General surgery consulted-Padilla Marquez Status post I&D 04/22 Missy ID consulted, discussed with Dr. Tapia Confirmed general surgery-they do not feel patient has osteomyelitis clinically ID service recommending vancomycin 1250 mg every 12 hours plus cefepime 2000 mg IV every 8 hours plus Flagyl 500 mg p.o. 3 times daily x1 more week total, day number 5 out of 7 Wound care nurse consulted Daily wound care: To right posterior lower buttock and perineal wounds- irrigate with saline Filled gently with Aquacel AG, Cover with ABDs and secure using disposable pants Change every day and as needed -- BP improved (3) History of CVA (cerebrovascular accident): (4) PAD (peripheral artery disease): Plan: Anticoagulated on Coumadin Given vitamin K, Coumadin held for surgery INR 1.8 coumadin 7.5mg po today then monitor daily patient usually takes 5 mg daily except for Thursday and for which she takes 10 mg INR tomorrow (5) Neurogenic bladder: Patient self caths 4 times a day Reveles catheter placed while admitted On chronic nitrofurantoin for UTI suppression DVT prophylaxis SCDs Coumadin Disposition Transfer to [facility] rehab today Follow-up with general surgery Dr. Padilla Marquez in 1 to 2-week Follow-up with [facility] wound care center in 1 week plan of care discussed with patient in detail and at length all questions answered he is understanding, agreeable, comfortable with the plan of care Admission and Anticipated Discharge Date Admission Date: April 18, 2022 Subjective Follow-up for perineal abscess, etc. Seen resting in bed, comfortable, not in distress States he feels fine overall Denies pain over the buttock area no chest pain, dyspnea, palpitations, dizziness No abdominal pain, nausea vomiting, fevers or chills States he is ready for transfer to [facility] rehab Review of Systems Review of Systems: all noted and negative except for above Physical Exam Physical Exam: General- oriented x 3, not in distress, speaks in sentences with no effort or accessory muscle use Eyes- anicteric Neck- no JVD Lungs- clear breath sounds bilaterally, no crackles or wheezing Heart- normal rate, regular rhythm; no murmurs Abdomen- normal bowel sounds, nondistended, soft, nontender Extremities- no pretibial edema, no calf tenderness Buttock-open wounds present, but no signs of infection, no surrounding erythema, no bleeding or discharge Status post right lower extremity amputation Neuro- alert, oriented x 3; no gross focal neurologic deficits Skin- warm & dry Results & Data Results & Data ([facility]) Vital Signs (Past 12 Hours) Vital Signs Temp Pulse Resp BP Pulse Ox O2 Del Method 04/29/22 07:40 36.7 C 61 16 130/73 95 Room Air all noted and reviewed including below
--- NOTE | 2022-04-29 13:34 | Discharge Summary ---
Discharge Summary Date of Service April 29, 2022 Notes For Next Care Provider Continue vancomycin, cefepime, Flagyl. Last day will be on May 01, 2022. Check INR daily and titrate Coumadin accordingly. Close follow-up of buttock wounds. Daily wound care. Medication Changes From Visit Vancomycin, cefepime, Flagyl until May 01, 2022 Lisinopril/HCTZ on hold to prevent hypotension, dehydration Titrate Coumadin accordingly Admission HPI Per Admitting Provider 66-year-old male with PMH traumatic T12 burst fracture resulting in paraplegia, history of CVA and PAD anticoagulated on Coumadin, s/p right BKA, HTN, dyslipidemia, neurogenic bladder requiring self-catheterization, and other problems listed below who presents to the ED by referral of the wound care center for evaluation of a right buttock wound. Previous history of stage III pressure ulcer of the right buttock treated at the wound care center, discharged in 01/2022. Patient reports that about 4 days ago, when he got out of bed he noted that there was a wet spot on the sheet. Patient was seen at the wound care center today and was found to have an unstageable ulcer in the right gluteal fold nearing the perineum. Due to significant drainage and foul- smelling odor, patient was referred to the ED for further evaluation. No fevers or chills reported. Patient reports he otherwise has been feeling well recently. Denies chest pain or shortness of breath. No lightheadedness or dizziness. Denies abdominal pain, nausea, vomiting, diarrhea. Patient reports that he self caths 4 times per day. Does know urine has been slightly more cloudy. In the ED, patient is hemodynamically stable, does not appear septic. CT pelvis shows Right perineal/inferior gluteal wound/ulceration. 2.8 cm pocket of fluid projecting over the skin which favors a draining wound. No rim- enhancing fluid collection to suggest abscess. No soft tissue gas. Adjacent infiltration consistent with cellulitis which extends to the base of the scrotum. Patient was given IV Zosyn.Allergies Admission Exam Per Admitting Provider Constitutional: WD/WN, vitals as above Eyes: PERRL, conjunctivae normal, anicteric sclerae ENMT: external ear and nose normal, oropharynx normal Respiratory: normal respiratory effort, lungs clear to auscultation Cardiovascular: Rate/Rhythm: regular rate and regular rhythm Vessels: normal peripheral pulses Extremities: no edema Gastrointestinal (Abdomen): normal bowel sounds, soft, nontender, no hepatosplenomegaly Musculoskeletal: S/p right BKA, chronic paraplegia Skin: no rashes, warm and dry Large, unstageable ulcer/wound to the right gluteal fold, + foul-smelling Neurologic: PERRL, EOMI, accommodation nl, no face palsy, no dysarthria Psychiatric: A+Ox3, euthymic affect Principal Dx & Hospital Course #1 = Principal Diagnosis (1) Paraplegia: (2) Unstageable pressure ulcer of buttock: (3) History of CVA (cerebrovascular accident): (4) PAD (peripheral artery disease): (5) Neurogenic bladder: per Dr. Khan's notes with addendum: (1) Paraplegia: (2) Unstageable pressure ulcer of buttock: Plan: Patient presenting by referral to the wound care center for evaluation of large, unstageable pressure ulcer of the right buttock/gluteal fold Pelvis CT showsRight perineal/inferior gluteal wound/ulceration. 2.8 cm pocket of fluid projecting over the skin which favors a draining wound. No rim-enhancing fluid collection to suggest abscess. No soft tissue gas. Adjacent infiltration consistent with cellulitis which extends to the base of the scrotum. Wound culture from 04/18 is growing Morganella morganii urine culture is growing Providencia rettgeri General surgery consulted-Padilla aMrquez Status post I&D 04/22 Missy ROBERTSON consulted, discussed with Dr. Tapia Confirmed general surgery-they do not feel patient has osteomyelitis clinically Wound healing appropriately Afebrile Missy ROBERTSON service recommending vancomycin 1250 mg every 12 hours plus cefepime 2000 mg IV every 8 hours plus Flagyl 500 mg p.o. 3 times daily x1 more week total, day number 5 out of 7 Wound care nurse consulted Daily wound care: To right posterior lower buttock and perineal wounds- irrigate with saline Filled gently with Aquacel AG, Cover with ABDs and secure using disposable pants Change every day and as needed (3) History of CVA (cerebrovascular accident): (4) PAD (peripheral artery disease): Plan: Anticoagulated on Coumadin Given vitamin K, Coumadin held for surgery INR 1.8 coumadin 7.5mg po today then monitor daily patient usually takes 5 mg daily except for Thursday and for which she takes 10 mg INR tomorrow (5) Neurogenic bladder: Patient self caths 4 times a day Reveles catheter placed while admitted On chronic nitrofurantoin for UTI suppression (6) hypertension Blood pressure was on the lower side Improved with IV fluids Lisinopril/HCTZ on hold Monitor blood pressure closely DVT prophylaxis SCDs Coumadin Disposition Transfer to [facility] rehab today Follow-up with general surgery Dr. Padilla Marquez in 1 to 2-wseek Follow-up with [facility] wound care center in 1 week plan of care discussed with patient in detail and at length all questions answered he is understanding, agreeable, comfortable with the plan of care Discharge Exam General- oriented x 3, not in distress, speaks in sentences with no effort or accessory muscle use Eyes- anicteric Neck- no JVD Lungs- clear breath sounds bilaterally, no crackles or wheezing Heart- normal rate, regular rhythm; no murmurs Abdomen- normal bowel sounds, nondistended, soft, nontender Extremities- no pretibial edema, no calf tenderness Buttock-open wounds present, but no signs of infection, no surrounding erythema, no bleeding or discharge Status post right lower extremity amputation Neuro- alert, oriented x 3; no gross focal neurologic deficits Skin- warm & dry Updated Medication List Medication Instructions Recorded Confirmed Type ascorbic acid (vitamin C) 500 mg 1,000 mg PO DAILY 09/18/21 04/18/22 History capsule aspirin 81 mg tablet,delayed 81 mg PO DAILY 09/18/21 04/18/22 History release lisinopril 10 1 tab PO DAILY 09/18/21 04/18/22 History mg-hydrochlorothiazide 12.5 mg tablet multivitamin 1 tab PO DAILY 09/18/21 04/18/22 History warfarin 5 mg tablet 10 mg PO TUTH 09/18/21 04/27/22 History atorvastatin 40 mg tablet 40 mg PO DAILY 04/18/22 04/18/22 History calcium carbonate 600 mg-vitamin 1 tab PO BID 04/18/22 04/18/22 History D3 10 mcg (400 unit) tablet nitrofurantoin macrocrystal 100 mg 100 mg PO DAILY 04/18/22 04/18/22 History capsule warfarin 5 mg tablet 5 mg PO SUMOWEFRSA 04/18/22 04/18/22 History zinc acetate 50 mg (zinc) capsule 50 mg PO DAILY 04/18/22 04/18/22 History L.acidop,casei,lactis,rham-B.lact,kate 2 cap PO DAILY 30 days #60 caps 04/29/22 Rx 625 mg (10 billion cell) capsule (Advanced Probiotic) cefepime 2 gram solution for 2 g IV Q8H 3 days #10 ea 04/29/22 Rx injection metronidazole 500 mg tablet 500 mg PO TID 3 days #9 tabs 04/29/22 Rx vancomycin 1,000 mg intravenous 1,250 mg IV Q12H 3 days #10 ea 04/29/22 Rx injection Hospital Stay Data Consultations 04/18/22 16:27 ED Decision to Admit Stat 04/18/22 17:42 Consult General Surgery Routine 04/23/22 09:11 Consult Infectious Diseases Routine Procedures Performed Operation Date: 04/22/22 12:00 Actual Procedures p Debridement Perineal Wound(Not Applicable) - Padilla Marquez DO, FACS Diagnostic Imagining Performed 04/18/22 13:25 CT pelvis w/IV con only Urgent CLINICAL HISTORY: Right perineal wound. COMPARISON STUDY: No previous studies for comparison. TECHNIQUE: Axial images of the pelvis were obtained following intravenous administration of 85 cc of Optiray 350. Sagittal and coronal reconstructions were viewed. Automated exposure control was utilized for the study. A dose lowering technique was utilized adhering to the principles of ALARA. FINDINGS: Diffuse muscular atrophy is noted. IVC filter is partially imaged. There are postoperative findings within the spine and right femur. Irregular bladder wall thickening is probably chronic. There is dilatation of the distal left ureter which may also be chronic. Mildly enlarged left external iliac and inguinal lymph nodes are likely reactive. Erosion of the coccyx and right inferior pubic ramus appears chronic. There is no evidence for acute osteomyelitis within the pelvis or hips. Degenerative changes of both hips are incidentally noted. Note is made of a right peroneal/inferior gluteal wound. There is a 2.8 cm pocket of fluid projecting over the skin. This favors a draining wound. No drainable rim-enhancing fluid collection is identified to suggest an abscess. There is adjacent infiltration consistent with cellulitis. There is no soft tissue gas to suggest necrotizing fasciitis by CT. A moderate amount of stool within the colon and rectum is present. Stool extending to the rectum and anus is noted. Postoperative findings within left iliac bone from bone harvesting are incidentally noted. IMPRESSION: 1. Right perineal/inferior gluteal wound/ulceration. 2.8 cm pocket of fluid projecting over the skin which favors a draining wound. No rim-enhancing fluid collection to suggest abscess. No soft tissue gas. Adjacent infiltration consistent with cellulitis which extends to the base of the scrotum. 2. Chronic erosion of the right inferior pubic ramus and coccyx. No evidence for acute osteomyelitis. 3. Irregular bladder wall thickening, likely chronic. ACT 112: Negative or not required by law. Pending Results Patient Have Any Pending Studies at Discharge: Yes Discharge Instructions Given to Patient (Per Discharging Provider) To right posterior lower buttock and perineal wounds- irrigate with saline, fill gently with Aquacel AG, Cover with ABDs and secure using disposable pants Change every day and as needed YOUR NEW MEDICATIONS INCLUDE: Vancomycin, cefepime, Flagyl-last day on May 01, 2022 Probiotics daily Please refer to accompanying hospital discharge summary for further details. Total Time Total Time Spent Total Time Spent (In Minutes): >30 minutes
[2022-04-29] MEDS ORDERED: WARFARIN SOD 7.5 MG TAB PO SCH (16:00)
[2022-04-29] MEDS ORDERED: WARFARIN SOD 7.5 MG TAB PO ONE (16:00)
[2022-05-01] MEDS ORDERED: VANCOMYCIN LEVEL SCH (09:00)
--- NOTE | 2022-05-13 05:31 | Coding Query ---
DEBRIDEMENT DOCUMENTATION To promote full compliance with coding requirements relating to patient care, physician participation is requested in all cases of correspondence analyst uncertainty. Please assist us with the question(s) below: Please place an X in the parenthesis (x). If other, please document the finding: On 04/22 patient had a debridement of a perineal wound/pressure ulcer. Type of Debridement: ( x) Excisional Debridement- Cutting away necrotic, devitalized tissue or slough to the level of viable tissue using a sharp instrument (i.e. scalpel, scissors, etc.) ( ) Non Excisional Debridement- The removal of necrotic, devitalized tissue or slough by means of scraping, mechanical brushing, flushing, or washing (i.e. irrigation,whirlpool);minor removal of loose fragments. ( ) Other (please specify): Instrument Used: ( ) Scissors (x ) Scalpel ( ) Curette ( x) Other (please specify): electrocautery Depth of Debridement: ( ) Skin ( ) Skin and Subcutaneous Tissue (x ) Skin, Subcutaneous Tissue and Muscle ( ) Skin, Subcutaneous Tissue, Muscle and Bone ( ) Other (please specify): Please Specify the Size of Debridement in cm2: 20cm2 Please see operative report from 22 Apr 2022 as this information was included in report. Thank you Gagandeep LITTLE CCS [facility]ENTERWillie
== END 2022-04-29 14:44 | DRG 580 ==
LOC: ED 10:39 → 3E 17:46 → SUATTDRO 17:46 → 3E 20:02
DX: Z79.01 Long term (current) use of anticoagulants; Z98.1 Arthrodesis status; B96.89 Other specified bacterial agents as the cause of diseases classified elsewhere; N49.2 Inflammatory disorders of scrotum; L03.315 Cellulitis of perineum; Z89.511 Acquired absence of right leg below knee; Z86.73 Personal history of transient ischemic attack (TIA), and cerebral infarction without residual deficits; I73.9 Peripheral vascular disease, unspecified; L89.310 Pressure ulcer of right buttock, unstageable; I10 Essential (primary) hypertension; N31.9 Neuromuscular dysfunction of bladder, unspecified; G82.20 Paraplegia, unspecified; Z87.891 Personal history of nicotine dependence; Z79.82 Long term (current) use of aspirin